=== PATIENT | female | born 2005 | race Caucasian/White ===

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

== ENCOUNTER → 2025-06-16 | Outpatient (CLI) | payer OTHER, SELFPAY ==
[2025-06-16 12:32] LABS: Hematocrit 37.5 % (37-47); Hemoglobin 12.9 g/dL (12.0-15.0); Immature Granulocytes Count 0.010 X10^3/uL (0.0-0.0); Mean Corp Hgb Conc 34.4 g/dL (32-36); Mean Corpuscular Volume 90.6 fL (81-99); Mean Platelet Vol. 9.4 fl (6.2-12.0); NRBC Flagged by Analyzer 0 % (0-5); Platelet Count 240 K/mm3 (150-450); RBC Distribution Width CV 11.6 % (11.6-14.6); RBC Distribution Width SD 38.6 fl (35.1-43.9); Red Blood Count 4.14 M/mm3 (4.2-5.4); White Blood Count 4.7 K/mm3 (4.4-11.0)
[2025-06-16 13:53] LABS: AST(SGOT) 15 U/L (<=31); Alanine Aminotransfer ALT/SGPT 14 U/L (<=34); Albumin, Serum 4.6 g/dL (3.5-5.0); Alkaline Phosphatase 57 U/L (35-104); Anion Gap 10 (5-15); BUN 13 mg/dL (4-19); BUN/Creat Ratio 17.9 RATIO (10-20); Calcium,Total 9.7 mg/dL (7.6-11.0); Carbon Dioxide 25.2 mmol/L (21.0-32.0); Chloride 104 mmol/L (98-108); Ferritin 37 ng/mL (22-378); Free T3 3.1 pg/mL (2.18-3.98); Globulin 2.8 g/dL (2.2-4.2); Glucose 104 mg/dL (70-99); Iron 76 ug/dL (50-170); Iron Binding Capacity,Total 302 ug/dL (250-450); Iron Binding Capacity,Unsat 226 ug/dL (228-428); Magnesium 2.2 mg/dL (1.5-2.2); Potassium 4.4 mmol/L (3.3-5.1)
== END | disposition home or self-care (01) ==
PROVIDERS: PCP Nurse Practitioner Family; Visit Provider Nurse Practitioner Family
DX: R00.2 Palpitations (principal)
CPT/HCPCS: 36415; 80053; 82728; 83540; 83550; 83735; 84439; 84443; 84481; 85025; 86376

== ENCOUNTER → 2025-06-20 | Outpatient (CLI) | payer OTHER, SELFPAY ==
--- OUTSIDE RECORDS SUMMARY | 2025-06-20 07:40 | XMS RPT_ITS | CCD ---
Author Organization [facility] Inform ion Partnership [facility] Care Team Providers Care Sock Lining Examiner Name Role Phone Unavailable Primary Care Provider Nhung Barton MD Primary Care Provider Unavailable Primary Care Provider Iban Dukes Primary Care Provider NHUNG Barton Primary Care Unavailable REFERRED, SELF Referring Unavailable OXANA WEST Attending Unavailable NHUNG ABRRON Primary Care Unavailable REFERRED, SELF Referring Unavailable OXANA WEST Attending Unavailable LENORA MCDANIELS Attending Unavailable NEEMA WATERS Attending Unavailable MAXIM CANTU Attending Unavailable Robina Boyd Attending Unavailable Robina Boyd Referring Unavailable Robina Boyd Primary Care Unavailable Robina Boyd Attending Unavailable Rboina Boyd Primary Care Unavailable Medications Current Medications Medication Drug Class(es) Dates Sig (Normalized) Sig (Original) [id number] 200 actuat albuterol 0.09 mg/actuat metered dose inhaler (1 source) beta2-Adrenergic Agonist Start: 05-06-2020 take 2 puff(s) by inhalation every four hours as needed for cough albuterol (VENTOLIN HFA) 108 (90 Base) MCG/ACT inhaler Inhale 2 Puffs into the lungs every 4 hours as needed for Wheezing or Cough 18 g 2 05/06/2020 Active amoxicillin 500 mg oral capsule (1 source) Penicillin-class Antibacterial Start: 03-17-2025 End: 03-27-2025 take 1 capsule by mouth twice daily amoxicillin (AMOXIL) 500 mg capsule Indications: Strep pharyngitis Take 1 capsule by mouth two times a day for 10 days. 20 capsule 03/17/2025 03/27/2025 Active amoxicillin 875 mg / clavulanate 125 mg oral tablet (1 source) Penicillin-class Antibacterial Start: 02-12-2025 End: 02-22-2025 take 1 tablet by mouth twice daily amoxicillin-clavul anate potassium (AUGMENTIN) 875-125 mg per tablet Indications: Acute non-recurrent streptococcal tonsillitis Take 1 tablet by mouth two times a day for 10 days. 20 tablet 02/12/2025 02/22/2025 Active azelastine hydrochloride 0.137 mg/actuat metered dose nasal spray (1 source) Histamine-1 Receptor Antagonist Start: 10-26-2020 azelastine (ASTELIN) 0.1 % nasal spray SPRAY ONCE IN EACH NOSTRIL 2 TIMES DAILY 90 [employer] 11 10/26/2020 Active 12 hr guaiFENesin 600 mg extended release oral tablet (1 source) guaiFENesin (MUCINEX) 600 MG SR tablet Take by mouth 0 Active levalbuterol 0.417 mg/ml inhalation solution (2 sources) beta2-Adrenergic Agonist Start: 11-28-2022 take 3 mL by inhalation every eight hours as needed for wheezing levalbuterol (XOPENEX) 1.25 MG/3ML nebulizer solution Inhale 3 mL (1.25 mg) into the lungs every 8 hours as needed for Wheezing 24 Each 0 11/28/2022 Active Start: 09-18-2008 levalbuterol ( XOPENEX) 1.25 MG/3ML nebulizer solution Inhale into the lungs as needed. 0 09/18/2008 Active loratadine 10 mg oral tablet (1 source) loratadine (CLAR ITIN) 10 MG tablet Take by mouth 0 Active predniSONE 20 mg oral tablet (1 source) Start: 02-13-20 25 End: 02-18-20 25 take 1 tablet by mouth twice daily predniSONE (DELTASONE) 20 mg tablet Indications: Acute non-recurrent streptococcal tonsillitis Take 1 tablet by mouth two times a day for 5 days. 10 tablet 02/12/2025 02/17/2025 Active pseudoephedrine hydrochloride 30 mg oral tablet (1 source) alpha-Adrenergi c Agonist pseudoephedrine (SUDAFED) 30 MG tablet Take by mouth every 6 hours 0 Active Spacer/Aero-Holding Chambers (AEROCHAMBER MV) MISC (1 source) Start: 05-20-20 16 take 2 puff(s) by inhalation every four hours as needed for cough Spacer/Aero-Holding Chambers (AEROCHAMBER MV) MISC Inhale 2 Puffs into the lungs every 4 hours as needed for Other (wheezing, cough) 1 Each 3 05/20/2016 Active Completed/Discontinued Medications Medication Drug Class(es) Dates Sig (Normalized) Sig (Original) dexamethasone 1 mg oral tablet (4 sources) Corticosteroid Start: 12-25-2023 End: 03-17-2025 dexAMETHasone (DECADRON) 1 mg tablet Indications: Elevated DHEA Take the tablet at around 11 pm and go for labs the next morning 1 tablet 12/25/2023 03/17/2025 Discontinued Problems Active Problems Problem Classification Problem Date Documented Date Episodic/Chronic Asthma (1 source) Asthma; Translations: [Unspecified asthma, uncomplicated] Onset: 03-28-2013 06-06-2016 Chronic Cardiac dysrhythmias (2 sources) Palpitations; Translations: [Palpitations] Onset: 06-17-2025 10-10-2023 Episodic Contraceptive and procreative management (1 source) Encounter for other contraceptive management; Translations: [Encounter for other contraceptive management] Onset: 05-23-2025 Episodic Malaise and fatigue (1 source) Fatigue; Translations: [Other fatigue] 10-10-2023 Episodic Menstrual disorders (4 sources) Irregular periods; Translations: [Irregular menstruation, unspecified] Onset: 05-23-2025 10-26-2023 Chronic Other endocrine disorders (1 source) Polycystic ovary syndrome; Translations: [Polycystic ovarian syndrome] 01-11-2024 Chronic Other endocrine disorders (1 source) Polycystic ovarian syndrome; Translations: [PCOS (polycystic ovarian syndrome)] Onset: 05-23-2025 Chronic Other female genital disorders (1 source) Abnormal uterine bleeding; Translations: [Other specified abnormal uterine and vaginal bleeding] 11-24-2023 Chronic Other screening for suspected conditions (not mental disorders or infectious disease) (4 sources) Endocrine finding; Translations: [Other specified abnormal findings of blood chemistry] 11-23-2023 Episodic Other upper respiratory disease (1 source) Allergic rhinitis; Translations: [Allergic rhinitis, unspecified] Onset: 03-30-2011 11-12-2015 Chronic Other upper respiratory infections (6 sources) Viral upper respiratory tract infection; Translations: [Acute upper respiratory infection, unspecified] Onset: 02-12-2025 Episodic Past or Other Problems Problem Classification Problem Date Documented Date Episodic/Chronic Headache; including migraine (1 source) Occipital headache; Translations: [Unilateral occipital headache] Onset: 05-06-2020 05-06-2020 Episodic Other connective tissue disease (1 source) Spasm; Translations: [Other muscle spasm] Onset: 01-30-2010 Resolved: 08-08-2013 08-08-2013 Episodic Residual codes; unclassified (1 source) Family history of ischemic heart disease and other diseases of the circulatory system; Translations: [Family history of other cardiovascular diseases] Onset: 03-28-2013 04-21-2013 Episodic Results Test Name Value Interpretation Reference Range Facility Thyroid Peroxidase ABon 06-04 THYR PEROX AB < 9 Normal 0-34 [facility] Comment on above: Result Comment: Perf ormed at: [facility] [address] [id number] Surgical Instrument Repair Specialist: Randall Rogers PhD, Phone: [phone] Performed By: #### L 506.0400, L3300.6900, L100.0100, L500.4050, L501.5200, L501.32664, L501.9520, L503.6030, L503.6550 #### [facility] [address] [place], [address] CBC W/Diff, Automatedon 06-04 Absolute Lymph 1.74 X10 3/uL Normal 0.83-4.51 [facility] Comment on above: Performed By: #### L 506.0400, L3300.6900, L100.0100, L500.4050, L501.5200, L501.57419, L501.9520, L503.6030, L503.6550 #### [facility] [address] [place], [address] Absolute Neut 2.7 X10 3/uL Normal 2.0-7.7 [facility] Comment on above: Performed By: #### L 506.0400, L3300.6900, L100.0100, L500.4050, L501.5200, L501.61953, L501.9520, L503.6030, L503.6550 #### [facility] [address] [place], [address] Basophils/100 WBC (Bld) 0.6 % Normal 0-1 [facility] Comment on above: Performed By: #### L 506.0400, L3300.6900, L100.0100, L500.4050, L501.5200, L501.17777, L501.9520, L503.6030, L503.6550 #### [facility] [address] [place], [address] Eosinophils/100 WBC (Bld) 0.4 % Normal 0-5 [facility] Comment on above: Performed By: #### L 506.0400, L3300.6900, L100.0100, L500.4050, L501.5200, L501.31831, L501.9520, L503.6030, L503.6550 #### [facility] [address] [place], [place], [id number] (912) Erythrocyte distribution width (RBC) [Ratio] 11.6 % Normal 11.6-14.6 [facility] Comment on above: Performed By: #### L 506.0400, L3300.6900, L100.0100, L500.4050, L501.5200, L501.44965, L501.9520, L503.6030, L503.6550 #### [facility] [address] [place], [address] Hematocrit (Bld) [Volume fraction] 37.5 % Normal 37-47 [facility] Comment on above: Performed By: #### L 506.0400, L3300.6900, L100.0100, L500.4050, L501.5200, L501.29052, L501.9520, L503.6030, L503.6550 #### [facility] [address] [place], [address] Hemoglobin (Bld) [Mass/Vol] 12.9 g/dL Normal 12.0-15.0 [facility] Comment on above: Performed By: #### L 506.0400, L3300.6900, L100.0100, L500.4050, L501.5200, L501.60668, L501.9520, L503.6030, L503.6550 #### [facility] [address] [place], [address] IG% 0.200 Normal 0.0-0.9 [facility] Comment on above: Result Comment: IG% - Immature Granulocytes (promyelocytes, myelocytes and metamyelocytes) > 1% indicates that a LEFT SHIFT is Present. Performed By: #### L 506.0400, L3300.6900, L100.0100, L500.4050, L501.5200, L501.96073, L501.9520, L503.6030, L503.6550 #### [facility] [address] [place], [address] Lymphocytes/100 WBC (Bld) 37.0 % Normal 19-41 [facility] Comment on above: Performed By: #### L 506.0400, L3300.6900, L100.0100, L500.4050, L501.5200, L501.07197, L501.9520, L503.6030, L503.6550 #### [facility] [address] [place], [address] MCH (RBC) [Entitic mass] 31.2 pg Normal 27.0-32.0 [facility] Comment on above: Performed By: #### L 506.0400, L3300.6900, L100.0100, L500.4050, L501.5200, L501.68270, L501.9520, L503.6030, L503.6550 #### [facility] [address] [place], [address] MCHC (RBC) [Mass/Vol] 34.4 g/dL Normal 32-36 [facility] Comment on above: Performed By: #### L 506.0400, L3300.6900, L100.0100, L500.4050, L501.5200, L501.02117, L501.9520, L503.6030, L503.6550 #### [facility] [address] [place], [address] MCV (RBC) [Entitic vol] 90.6 fL Normal 81-99 [facility] Comment on above: Performed By: #### L 506.0400, L3300.6900, L100.0100, L500.4050, L501.5200, L501.01452, L501.9520, L503.6030, L503.6550 #### [facility] [address] [place], [address] Monocytes/100 WBC (Bld) 4.7 % Normal 0-10 [facility] Comment on above: Performed By: #### L 506.0400, L3300.6900, L100.0100, L500.4050, L501.5200, L501.49511, L501.9520, L503.6030, L503.6550 #### [facility] [address] [place], [address] Neutrophils/100 WBC (Bld) 57.1 % Normal 47-70 [facility] Comment on above: Performed By: #### L 506.0400, L3300.6900, L100.0100, L500.4050, L501.5200, L501.61123, L501.9520, L503.6030, L503.6550 #### [facility] [address] [place], [address] Nucleated RBC (Bld) [#/Vol] 0 10*3/uL Normal 0-5 [facility] Comment on above: Performed By: #### L 506.0400, L3300.6900, L100.0100, L500.4050, L501.5200, L501.04454, L501.9520, L503.6030, L503.6550 #### [facility] [address] [place], [address] Platelet mean volume (Bld) [Entitic vol] 9.4 fL Normal 6.2-12.0 [facility] Comment on above: Performed By: #### L 506.0400, L3300.6900, L100.0100, L500.4050, L501.5200, L501.61770, L501.9520, L503.6030, L503.6550 #### [facility] [address] [place], [address] Platelets (Bld) [#/Vol] 240 10*3/uL Normal 150-450 [facility] Comment on above: Performed By: #### L 506.0400, L3300.6900, L100.0100, L500.4050, L501.5200, L501.54298, L501.9520, L503.6030, L503.6550 #### [facility] [address] [place], [address] RBC (Bld) [#/Vol] 4.14 10*6/uL Low 4.2-5.4 [facility] Comment on above: Performed By: #### L 506.0400, L3300.6900, L100.0100, L500.4050, L501.5200, L501.69850, L501.9520, L503.6030, L503.6550 #### [facility] [address] [place], [address] RDW SD 38.6 fl Normal 35.1-43.9 [facility] Comment on above: Performed By: #### L 506.0400, L3300.6900, L100.0100, L500.4050, L501.5200, L501.41396, L501.9520, L503.6030, L503.6550 #### [facility] [address] [place], [place], [id number] WBC (Bld) [#/Vol] 4.7 10*3/uL Normal 4.4-11.0 [facility] Comment on above: Performed By: #### L 506.0400, L3300.6900, L100.0100, L500.4050, L501.5200, L501.96870, L501.9520, L503.6030, L503.6550 #### [facility] [address] [place], [address] Comprehensive Metabolic Prof [facility] 06-16-2025 Albumin [Mass/Vol] 4.6 g/dL Normal 3.5-5.0 [facility] Comment on above: Performed By: #### L 506.0400, L3300.6900, L100.0100, L500.4050, L501.5200, L501.18095, L501.9520, L503.6030, L503.6550 #### [facility] [address] [place], [place], [id number] Albumin/Globulin [Mass ratio] 1.6 {ratio} Normal 0.9-2.4 [facility] Comment on above: Performed By: #### L 506.0400, L3300.6900, L100.0100, L500.4050, L501.5200, L501.15318, L501.9520, L503.6030, L503.6550 #### [facility] [address] [place], [place], [id number] ALK PHOS 57 U/L Normal 35-104 [facility] Comment on above: Performed By: #### L 506.0400, L3300.6900, L100.0100, L500.4050, L501.5200, L501.16322, L501.9520, L503.6030, L503.6550 #### [facility] [address] [place], [place], [id number] (515) ALT [Catalytic activity/Vol] 14 U/L Normal <=34 [facility] Comment on above: Performed By: #### L 506.0400, L3300.6900, L100.0100, L500.4050, L501.5200, L501.09386, L501.9520, L503.6030, L503.6550 #### [facility] [address] [place], [address] AST [Catalytic activity/Vol] 15 U/L Normal <=31 [facility] Comment on above: Performed By: #### L 506.0400, L3300.6900, L100.0100, L500.4050, L501.5200, L501.70132, L501.9520, L503.6030, L503.6550 #### [facility] [address] [place], [place], [id number] Bilirubin [Mass/Vol] 0.35 mg/dL Normal 0.00-1.30 [facility] Comment on above: Performed By: #### L 506.0400, L3300.6900, L100.0100, L500.4050, L501.5200, L501.72935, L501.9520, L503.6030, L503.6550 #### [facility] [address] [place], [place], [id number] BUN/CRE 17.9 RATIO Normal 10-20 [facility] Comment on above: Performed By: #### L 506.0400, L3300.6900, L100.0100, L500.4050, L501.5200, L501.95424, L501.9520, L503.6030, L503.6550 #### [facility] [address] [place], [address] Calcium [Mass/Vol] 9.7 mg/dL Normal 7.6-11.0 [facility] Comment on above: Performed By: #### L 506.0400, L3300.6900, L100.0100, L500.4050, L501.5200, L501.16707, L501.9520, L503.6030, L503.6550 #### [facility] [address] [place], [address] Chloride [Moles/Vol] 104 mmol/L Normal 98-108 [facility] Comment on above: Performed By: #### L 506.0400, L3300.6900, L100.0100, L500.4050, L501.5200, L501.78534, L501.9520, L503.6030, L503.6550 #### [facility] [address] [place], [address] CO2 [Moles/Vol] 25.2 mmol/L Normal 21.0-32.0 [facility] Comment on above: Performed By: #### L 506.0400, L3300.6900, L100.0100, L500.4050, L501.5200, L501.55342, L501.9520, L503.6030, L503.6550 #### [facility] [address] [place], [address] Creatinine [Mass/Vol] 0.71 mg/dL Normal 0.70-1.20 [facility] Comment on above: Performed By: #### L 506.0400, L3300.6900, L100.0100, L500.4050, L501.5200, L501.50056, L501.9520, L503.6030, L503.6550 #### [facility] [address] [place], [address] GAP 10 Normal 5-15 [facility] Comment on above: Performed By: #### L 506.0400, L3300.6900, L100.0100, L500.4050, L501.5200, L501.78552, L501.9520, L503.6030, L503.6550 #### [facility] [address] [place], [address] GFR/1.73 sq M.predicted among non-blacks MDRD (S/P/Bld) [Vol rate/Area] 125 mL/min/{1.73_m2} Normal >60 [facility] Comment on above: Result Comment: mL/m in/1.73m2 CKD-EPI Creatinine Equation (2020) Performed By: #### L 506.0400, L3300.6900, L100.0100, L500.4050, L501.5200, L501.03727, L501.9520, L503.6030, L503.6550 #### [facility] [address] [place], [address] Globulin (S) [Mass/Vol] 2.8 g/dL Normal 2.2-4.2 [facility] Comment on above: Performed By: #### L 506.0400, L3300.6900, L100.0100, L500.4050, L501.5200, L501.60172, L501.9520, L503.6030, L503.6550 #### [facility] [address] [place], [address] Glucose [Mass/Vol] 104 mg/dL High 70-99 [facility] Comment on above: Performed By: #### L 506.0400, L3300.6900, L100.0100, L500.4050, L501.5200, L501.40013, L501.9520, L503.6030, L503.6550 #### [facility] [address] [place], [address] Potassium [Moles/Vol] 4.4 mmol/L Normal 3.3-5.1 [facility] Comment on above: Performed By: #### L 506.0400, L3300.6900, L100.0100, L500.4050, L501.5200, L501.60550, L501.9520, L503.6030, L503.6550 #### [facility] [address] [place], [address] Sodium [Moles/Vol] 140 mmol/L Normal 133-145 [facility] Comment on above: Performed By: #### L 506.0400, L3300.6900, L100.0100, L500.4050, L501.5200, L501.32942, L501.9520, L503.6030, L503.6550 #### [facility] [address] [place], [address] T PROT 7.3 g/dL Normal 5.9-8.4 [facility] Comment on above: Performed By: #### L 506.0400, L3300.6900, L100.0100, L500.4050, L501.5200, L501.09571, L501.9520, L503.6030, L503.6550 #### [facility] [address] [place], [address] Urea nitrogen [Mass/Vol] 13 mg/dL Normal 4-19 [facility] Comment on above: Performed By: #### L 506.0400, L3300.6900, L100.0100, L500.4050, L501.5200, L501.58552, L501.9520, L503.6030, L503.6550 #### [facility] [address] [place], [address] Ferritinon 06-16-2025 Ferritin [Mass/Vol] 37 ng/mL Normal 22-378 [facility] Comment on above: Performed By: #### L 506.0400, L3300.6900, L100.0100, L500.4050, L501.5200, L501.13643, L501.9520, L503.6030, L503.6550 #### [facility] [address] [place], [place], [id number] Free T3on 06-16-2025 Free T3 [Mass/Vol] 3.1 pg/mL Normal 2.18-3.98 [facility] Comment on above: Performed By: #### L 506.0400, L3300.6900, L100.0100, L500.4050, L501.5200, L501.80992, L501.9520, L503.6030, L503.6550 #### [facility] [address] [place], [address] Iron+Iron Binding Capacityon 06-16-2025 Iron [Mass/Vol] 76 ug/dL Normal 50-170 [facility] Comment on above: Performed By: #### L 506.0400, L3300.6900, L100.0100, L500.4050, L501.5200, L501.55092, L501.9520, L503.6030, L503.6550 #### [facility] [address] [place], [address] IRON SATURATION 25.2 Normal 13-59 [facility] Comment on above: Performed By: #### L 506.0400, L3300.6900, L100.0100, L500.4050, L501.5200, L501.83349, L501.9520, L503.6030, L503.6550 #### [facility] [address] [place], [address] TIBC 302 ug/dL Normal 250-450 [facility] Comment on above: Performed By: #### L 506.0400, L3300.6900, L100.0100, L500.4050, L501.5200, L501.39487, L501.9520, L503.6030, L503.6550 #### [facility] [address] [place], [address] UIBC 226 ug/dL Low 228-428 [facility] Comment on above: Performed By: #### L 506.0400, L3300.6900, L100.0100, L500.4050, L501.5200, L501.58150, L501.9520, L503.6030, L503.6550 #### [facility] [address] [place], [address] Magnesiumon 06-16-2025 Magnesium [Mass/Vol] 2.2 mg/dL Normal 1.5-2.2 [facility] Comment on above: Performed By: #### L 506.0400, L3300.6900, L100.0100, L500.4050, L501.5200, L501.98465, L501.9520, L503.6030, L503.6550 #### [facility] [address] [place], [address] T4 Free Directon 06-16-2025 T4 FREE DIRECT 1.00 ng/dL Normal 0.76-1.46 [facility] Comment on above: Performed By: #### L 506.0400, L3300.6900, L100.0100, L500.4050, L501.5200, L501.64637, L501.9520, L503.6030, L503.6550 #### [facility] [address] [place], [address] Thyroid Stim Hormone (TSH)on 06-16-2025 TSH 1.320 uIU/mL Normal 0.300-4.200 [facility] Comment on above: Performed By: #### L 506.0400, L3300.6900, L100.0100, L500.4050, L501.5200, L501.95404, L501.9520, L503.6030, L503.6550 #### [facility] [place], [address] CNOVon 05-23-2025 CNOV Office Visit (OBGYWM) CATALINA GERBER ([id number]) 5 F Date Time Provider Department 05/23/25 8:00 AM LENORA MCDANIELS OBGYWM During your visit today, we recorded the following information about you: Blood pressure Weight Last Period 110/62 74.5 kg 04/26/25 Lenora Mcdaniels APRN.FLOCCULATOR OPERATOR 05/23/2025 9:03 AM Signed Obstetrics and Gynecology [place] REMARKETING REP Visit Subjective Recording using ambient Rezzcard software for draft documentation of the visit was discussed with the patient/authorized insurance verification representative; all questions welcomed and answered. Patient/authorized insurance verification representative agreed to proceed CHIEF COMPLAINT: The patient is a 20-year-old female with PCOS, presenting for evaluation of abnormal uterine bleeding and management of irregular menstrual cycles. HPI: Menstrual History - Reports irregular menstrual cycles, with periods occurring once a month for a few months at the beginning of the year, followed by an absence of periods in February and March. - Last menstrual period was at the end of April, lasting approximately four days with no significant heavy bleeding. - Experiences cramping and feeling "sick" a week before the onset of menstruation. - Denies significant cramping during menstruation. PCOS - Suspected diagnosis of PCOS made approximately a year ago, but no treatment was initiated at that time. - Reports excess vaginal discharge, but denies any unusual odor or color changes. 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 levalbuterol (XOPENEX) 1.25 mg/3 mL nebulizer solution Use 1.25 mg via nebulizer every 4 hours as needed. Ethinyl Estradiol-Norelgestr om (XULANE) 150-35 mcg/24 hr patch Apply 1 patch as directed one time a week. No current facility-administere d medications for this visit. ALLERGIES No Known Allergies REVIEW OF SYSTEMS: Constitutional: (+) malaise Genitourinary: (+) irregular menses, (+) pelvic pain, (+) increased vaginal discharge, (-) heavy menstrual bleeding, (-) vaginal pruritus, (-) malodorous vaginal discharge Objective SENSITIVE EXAM: Sensitive exam not performed. PHYSICAL EXAM: BP 110/62 Wt 164 lb 3.2 oz (74.5kg) LMP 04/26/2025 GENERAL: Pleasant, well-appearing, in no apparent distress PULMONARY: normal inspiratory effort NEURO: alert and oriented x3 EXTREMITIES: normal Assessment AND Plan ASSESSMENT AND PLAN: 1. PCOS (polycystic ovarian syndrome) (E28.2) 2. Irregular menstrual cycle (N92.6) 3. Encounter for other contraceptive management (Z30.8) - History of irregular menses, likely secondary to PCOS; previously discussed but not treated with hormonal therapy. - Start contraceptive patch to regulate menstrual cycles and manage PCOS symptoms. - Discussed alternative of oral contraceptive pills, including differences in convenience and dosing flexibility; patient prefers patch. - Educated on proper patch application, expected side effects, and the possibility of breakthrough bleeding or spotting during the first month. - Provided written information on side effects and when to contact the office for heavy bleeding, severe cramping, or nausea. - Follow-up in 3 months to assess symptom improvement and menstrual regularity. Lenora Mcdaniels APRN.CNP Medical Decision Making: Problems: Low: Acute, uncomplicated illness or injury Risk: Moderate: Drug management Medical Decision Making Level: 3 - Low [1] Social History Tobacco Use Smoking status: Never Smokeless tobacco: Never Vaping Use Vaping status: Never Used Substance Use Topics Alcohol use: Never Drug use: Never Lenora Mcdaniels APRN.CNP 05/23/2025 8:26 AM Signed Oral Contraceptives: The Combined (Estrogen + Progestin) Pill Beginning the Combined Pill In most packs, the first 21 pills have active ingredients and the last 7 are non-medicine containing pills (placebo) or they may contain iron. There will be bleeding during the week you are taking the placebo pills. There are also packs that contain 24 active medication pills and only 4 placebo pills. These are form (more content not included)... [facility] Progress Noteon 04-29-2025 [employer] [place] Authentication Interface Message Text Patient ID: Catalina Gerber is a 20 y.o. female. Her chief complaint(s) include: Abdominal Pain (Indigestion and belly ache. Cramping and low back pain ) Assessment 1. Lower abdominal pain 2. Symptoms involving urinary system 3. Encounter for test, result unknown 4. Gastroesophageal reflux disease, unspecified whether esophagitis present Plan Catalina was seen today for abdominal pain. Diagnoses and associated orders for this visit: Lower abdominal pain Symptoms involving urinary system - POCT urinalysis dipstick- negative Encounter for test, result unknown - POCT urine HCG-negative Gastroesophageal reflux disease, unspecified whether esophagitis present - omeprazole (PRILOSEC) 20 MG capsule; Take 1 Capsule (20 mg) by mouth daily Patient with hx of PCOS and acid reflux here for decreased appetite, lower abdominal pain, and lower back pain. UA and urine HCG negative. Low concern for UTI/pyelo, appendicitis, and STI. Other differentials for her abdominal suprapelvic pain include ovarian cyst with her PCOS, endometriosis, menstrual cramps, constipation/bloatin g/gas. Low back pain may be MSK pain but continue to monitor. In regards to pain, can continue NSAIDs (I.e. Aleve twice daily), heating pad. Advised to discuss with OBGYN. Discussed reflux and recommended Prilosec OTC. Sent prescription in just in case. I saw patient [id number] with Oxana West MD in the PM. Salvatore Gonzalez, 04/29/2025 4:14 PM I personally performed yoder portions of the history and physical examination of this patient and discussed the management plan with the resident. I reviewed the resident's note. The findings and the plan of care are set forth above. Oxana Hatfield MD 4:26 PM 04/29/2025 Subjective HPI Comments: 10 days ago, started a period. - lasted 4 days, not heavy Since her period started, has been nauseas, decreased appetite No emesis, nausea improved since period stopped but has decreased appetite Yesterday noted lower belly cramping and today low back pain, achy/dull Today, noted white, sticky, vaginal discharge Worsening belly pain when she has to pee Feels more bloated and has gas pain in the AM Denies weird vaginal discharge smells, spotting, dysuria, hematuria, constipation Stooling once a day, initially diarrhea but has improved No fevers, URI, headache, rash, fatigue. No known sick contacts Has tried ibuprofen yesterday with minimal relief in abdominal pain Has hx of PCOS, acid reflux (takes tums after meals at least once to every other day) Reflux worse around periods Usually irregular cycles but has been regular for the last year Never been on control Denies any or hx of sexual activity Has OBGYN appointment early may She is unaccompanied. Abdominal Pain Primary Care Review of Systems Objective Vital Signs 04/29/25 1504 Temp: 36.6 C (97.9 F) TempSrc: Temporal Weight: 73.6 kg Height: 170 cm Body mass index is 25.47 kg/m . Physical Exam Nursing note reviewed. Constitutional: She appears well. No distress. HENT: Head: Atraumatic. Ears: Right Ear: Tympanic membrane and external ear normal. Left Ear: Tympanic membrane and external ear normal. Nose: Nose normal. Mouth/Throat: Mucous membranes are moist. Dentition is normal. Oropharynx is clear. Eyes: EOM are normal. Pupils are equal, round, and reactive to light. Neck: Neck supple. Thyroid normal. Cardiovascular: Normal rate, regular rhythm, S1 normal and S2 normal. Pulses are palpable. Heart murmur not heard. Pulmonary/Chest: Breath sounds normal. There is normal air entry. No respiratory distress. Exhibits no deformity. Abdominal: Soft. Bowel sounds are normal. She exhibits no distension and no mass. There is no hepatosplenomegaly. There is abdominal tenderness (lower abdomen/suprapubic area R>L). Jumps up and down without pain Musculoskeletal: Cervical back: Normal range of motion and neck supple. General: No tenderness. Normal range of motion. Comments: No back tenderness on palpation No spinal tenderness Neurological: She is alert. Skin: Capillary refill takes less than 3 seconds. Skin is warm. Skin is not pale. Findings: No rash. Vitals reviewed: Temperature 36.6 C (97.9 F), temperature source Temporal, height 170 cm, weight 73.6 kg. Last Result POCT urine HCG Collection Time: 04/29/25 3:14 PM Result Value Ref Range hCG Urine POCT Negative Negative Control Line *Present Clear Background *Present Lot # [id number] POCT urinalysis dipstick Collection Time: 04/29/25 3:13 PM Result Value Ref Range POCT, Leukocytes, Urine Negative Negative POCT Nitrite, Urine Negative Negative POCT Protein, Urine Negative Negative - Trace mg/dl POCT Urine,pH 7.0 5.0 - 8.0 POCT Blood, Urine Negative Negative POCT Urine Specific [place] 1.005 1.005 - 1.030 POCT Ketones, Urine Negative Negative mg/dl POCT Glucose, Urine Negati (more content not included)... Normal [facility] CNOVon 03-17-2025 CNOV Office Visit ([place]) CATALINA GERBER ([id number]) 5 F Date Time Provider Department 03/17/25 5:45 PM SLABNEEMA ARCE During your visit today, we recorded the following information about you: Temperature Pulse Respiration Blood pressure 97.6 degrees 95/minute 16/minute 131/69 Weight 75.9 kg Neema Waters PA-C 03/17/2025 6:02 PM Signed PATIENT NAME: Catalina Gerber DATE OF : 2005 TODAYS' DATE: 03/17/2025 Surgical mask and gloves worn for all in-person care. SUBJECTIVE: Patient presents with: Sore Throat: Sore throat last couple days. Head ache. Hurt to swallow. HPI per the patient. History of Present Illness: This is a 20 year old with a PMHx of asthma that is here today for acute onset sore throat and SMITH for a couple of days. No sinus, cough, n/v, SMITH, or rash. No other URI or sick symptoms. Denies fever, chills, sweats, or fatigue. Patient denies wheezing, shortness of breath, increased WOB, or chest pain. Chart review: PMHx of asthma Pain on scale of 0-10 with 0 being no pain and 10 being greatest pain: - Self-treatment:. Ibuprofen Barriers to learning: none. Reviewed meds, OTCs, herbals or supplements. Reviewed allergies, medications, social history, and past medical history. Allergies: Allergies: No Known Allergies ALLERGIES Patient has no known allergies. Past Medical History: PAST MEDICAL HISTORY Diagnosis Date Asthma Past Surgical History: PAST SURGICAL HISTORY Procedure Laterality Date NONE Family History: FAMILY HISTORY Problem Relation Age of Onset Thyroid Nodule Sister other (pcos) Sister other (pcos) Sister Hypothyroidism Maternal Aunt Thyroid Paternal Aunt Thyroid Paternal Aunt Thyroid Cancer Paternal cousin Thyroid Cancer Paternal cousin Tobacco History: Tobacco Use: Never Medications: Current Outpatient Medications Medication Sig Dispense Refill dexAMETHasone (DECADRON) 1 mg tablet Take the tablet at around 11 pm and go for labs the next morning (Patient not taking: Reported on 01/09/2024) 1 tablet 0 No current facility-administere d medications for this visit. Medications and allergies reviewed by this provider. Social history Social History Tobacco Use Smoking status: Never Smokeless tobacco: Never Vaping Use Vaping status: Never Used Substance Use Topics Alcohol use: Never Drug use: Never REVIEW OF SYSTEMS Review of Systems Constitutional: Negative. HENT: Positive for sore throat. Eyes: Negative. Respiratory: Negative. Cardiovascular: Negative. Gastrointestinal: Negative. Endocrine: Negative. Genitourinary: Negative. Musculoskeletal: Negative. Allergic/Immunologic : Negative. Neurological: Positive for headaches. Hematological: Negative. Psychiatric/Behavior al: Negative. All other systems reviewed and are negative. Vitals: BP 131/69 (BP Site: Right Arm, BP Position: Sitting, BP Cuff Size: Regular Adult) Pulse 95 Temp 36.4 ?C (97.6 ?F) (Right Tympanic) Resp 16 Wt 75.9 kg (167 lb 5.3 oz) LMP 09/13/2023 (Exact Date) SpO2 100% Physical Exam: Physical Exam Vitals reviewed. Constitutional: General: She is not in acute distress. Appearance: Normal appearance. She is well-developed and normal weight. She is not ill-appearing, toxic-appearing or diaphoretic. HENT: Head: Normocephalic and atraumatic. No right periorbital erythema or left periorbital erythema. Salivary Glands: Right salivary gland is not diffusely enlarged or tender. Left salivary gland is not diffusely enlarged or tender. Right Ear: Tympanic membrane, ear canal and external ear normal. Left Ear: Tympanic membrane, ear canal and external ear normal. Nose: Nose normal. No congestion or rhinorrhea. Right Sinus: No maxillary sinus tenderness or frontal sinus tenderness. Left Sinus: No maxillary sinus tenderness or frontal sinus tenderness. Mouth/Throat: Lips: [place]. No lesions. Mouth: Mucous membranes are moist. No oral lesions. Dentition: No gum lesions. Tongue: No lesions. Tongue does not deviate from midline. Palate: No mass and lesions. Pharynx: Oropharynx is clear. Uvula midline. Posterior oropharyngeal erythema present. No pharyngeal swelling, oropharyngeal exudate, uvula swelling or postnasal drip. Tonsils: No tonsillar exudate or tonsillar abscesses. 1+ on the right. 1+ on the left. Eyes: General: Lids are normal. No scleral icterus. Right eye: No discharge. Left eye: No discharge. Extraocular Movements: Extraocular movements intact. Conjunctiva/sclera: Conjunctivae normal. Pupils: Pupils are equal, round, and reactive to light. Pupils are equal. Cardiovascular: Rate and Rhythm: Normal rate and regular rhythm. Heart sounds: Normal heart sounds. Pulmonary: Effort: Pulmonary effort is normal. Breath sounds: Normal breath sounds and air entry. Muscul (more content not included)... [facility] STREP A MOLECULAR (POC)on Interpretation and review of laboratory results Abnormal [facility] Procedural Control Valid [facility] Strep A (POCT) Positive Abnormal Negative [facility] COMPLETE BLOOD COUNT WITH DI FFERENTIALon 02-25-2025 Basophil \\P\\ 0.03 10E3/???L Invalid Interpretation Code 0.02-0.06 [facility] Comment on above: Order Comment: Relea se to patient->Automatic Basophils/100 WBC (Bld) 0.5 % Invalid Interpretation Code 0.3-0.9 [facility] Comment on above: Order Comment: Relea se to patient->Automatic Eosinophil \\P\\ 0.03 10E3/???L Low 0.04-0.27 [facility] Comment on above: Order Comment: Relea se to patient->Automatic Eosinophils/100 WBC (Bld) 0.5 % Low 0.6-3.8 [facility] Comment on above: Order Comment: Relea se to patient->Automatic Erythrocyte distribution width (RBC) [Ratio] 11.7 % Low 11.9-14.8 [facility] Comment on above: Order Comment: Relea se to patient->Automatic Hematocrit (Bld) [Volume fraction] 37.8 % Invalid Interpretation Code 35.5-44.6 [facility] Comment on above: Order Comment: Relea se to patient->Automatic Hemoglobin (Bld) [Mass/Vol] 13.5 g/dL Invalid Interpretation Code 11.4-14.8 [facility] Comment on above: Order Comment: Relea se to patient->Automatic Immature granulocytes/100 WBC (Bld) 0.2 % Invalid Interpretation Code 0.2-0.5 [facility] Comment on above: Order Comment: Relea se to patient->Automatic Result Comment: Hilda ture Granulocyte Percent includes promyelocytes, myelocytes,and metamyelocytes. IG% > 1.0 indicates a left shift is present. With automated differentials, bands are included in the neutrophil count and not in the Immature Granulocyte Percent. Lymphocyte \\P\\ 1.85 10E3/???L Invalid Interpretation Code 1.51-2.99 [facility] Comment on above: Order Comment: Relea se to patient->Automatic Lymphocytes/100 WBC (Bld) 33.2 % Invalid Interpretation Code 21.8-42.1 [facility] Comment on above: Order Comment: Relea se to patient->Automatic MCH (RBC) [Entitic mass] 31.8 pg High 25.7-31.2 [facility] Comment on above: Order Comment: Relea se to patient->Automatic MCHC 35.7 % High 31.3-34.0 [facility] Comment on above: Order Comment: Relea se to patient->Automatic MCV (RBC) [Entitic vol] 89.2 fL Invalid Interpretation Code 80.0-100.0 [facility] Comment on above: Order Comment: Relea se to patient->Automatic Monocyte \\P\\ 0.26 10E3/???L Low 0.36-0.77 [facility] Comment on above: Order Comment: Relea se to patient->Automatic Monocytes/100 WBC (Bld) 4.7 % Low 5.6-10.2 [facility] Comment on above: Order Comment: Relea se to patient->Automatic Neutrophil \\P\\ 3.39 10E3/???L Invalid Interpretation Code 2.43-6.42 [facility] Comment on above: Order Comment: Relea se to patient->Automatic Neutrophils/100 WBC (Bld) 60.9 % Invalid Interpretation Code 46.0-68.6 [facility] Comment on above: Order Comment: Relea se to patient->Automatic Nucleated RBC/100 WBC (Bld) [Ratio] 0.0 % Invalid Interpretation Code 0.0-0.0 [facility] Comment on above: Order Comment: Relea se to patient->Automatic Platelet mean volume (Bld) [Entitic vol] 9.5 fL Low 9.6-11.9 [facility] Comment on above: Order Comment: Relea se to patient->Automatic Platelets 230 10E3/???L Invalid Interpretation Code 150-400 [facility] Comment on above: Order Comment: Relea se to patient->Automatic RBC 4.24 10E6/???L Invalid Interpretation Code 4.03-4.91 [facility] Comment on above: Order Comment: Relea se to patient->Automatic WBC 5.6 10E3/???L Invalid Interpretation Code 4.9-10.0 [facility] Comment on above: Order Comment: Relea se to patient->Automatic COMPREHENSIVE METABOLIC PANE [place] 02-25-2025 Albumin [Mass/Vol] 4.5 g/dL Invalid Interpretation Code 3.5-5.0 [facility] Comment on above: Order Comment: Relea se to patient->Automatic Result Comment: Veri fied By: [id number] ALP [Catalytic activity/Vol] 55 U/L Invalid Interpretation Code 35-104 [facility] Comment on above: Order Comment: Relea se to patient->Automatic Result Comment: Veri fied By: [id number] ALT [Catalytic activity/Vol] 22 U/L Invalid Interpretation Code <=34 [facility] Comment on above: Order Comment: Relea se to patient->Automatic Result Comment: Veri fied By: [id number] AST [Catalytic activity/Vol] 26 U/L Invalid Interpretation Code <=31 [facility] Comment on above: Order Comment: Relea se to patient->Automatic Result Comment: Veri fied By: [id number] BILI,TOTAL 0.7 mg/dL Invalid Interpretation Code <=1.0 [facility] Comment on above: Order Comment: Relea se to patient->Automatic Result Comment: Veri fied By: [id number] Calcium [Mass/Vol] 9.7 mg/dL Invalid Interpretation Code 7.6-11.0 [facility] Comment on above: Order Comment: Relea se to patient->Automatic Result Comment: Veri fied By: [id number] Chloride [Moles/Vol] 103 mmol/L Invalid Interpretation Code 96-108 [facility] Comment on above: Order Comment: Relea se to patient->Automatic Result Comment: Veri fied By: [id number] CO2 [Moles/Vol] 24.7 mmol/L Invalid Interpretation Code 22.0-29.0 [facility] Comment on above: Order Comment: Relea se to patient->Automatic Result Comment: Veri fied By: [id number] Creatinine [Mass/Vol] 0.82 mg/dL Invalid Interpretation Code 0.50-1.00 [facility] Comment on above: Order Comment: Relea se to patient->Automatic Result Comment: Veri fied By: [id number] GFR/1.73 sq M.predicted among non-blacks MDRD (S/P/Bld) [Vol rate/Area] mL/min/{1.73_m2} Invalid Interpretation Code >=60 [facility] Comment on above: Order Comment: Relea se to patient->Automatic Glucose [Mass/Vol] 106 mg/dL High 70-99 [facility] Comment on above: Order Comment: Relea se to patient->Automatic Result Comment: Claire guerra for Diagnosis of Diabetes: Fasting Specimen (no caloric intake for at least 8 hours): <100 mg/dL Normal 100-125 mg/dL Increased risk for Diabetes >125 mg/dL Diagnostic for Diabetes Random Glucose (any time of day without regard to last meal): > or = 200 mg/dL plus Classic Symptoms of Diabetes Verified By: [id number] Potassium [Moles/Vol] 4.2 mmol/L Invalid Interpretation Code 3.3-5.1 [facility] Comment on above: Order Comment: Relea se to patient->Automatic Result Comment: Veri fied By: [id number] Protein [Mass/Vol] 7.2 g/dL Invalid Interpretation Code 5.9-8.4 [facility] Comment on above: Order Comment: Relea se to patient->Automatic Result Comment: Veri fied By: [id number] Sodium [Moles/Vol] 138 mmol/L Invalid Interpretation Code 133-145 [facility] Comment on above: Order Comment: Relea se to patient->Automatic Result Comment: Veri fied By: [id number] Urea nitrogen [Mass/Vol] 13 mg/dL Invalid Interpretation Code 4-19 [facility] Comment on above: Order Comment: Relea se to patient->Automatic Result Comment: Veri fied By: [id number] ALVARO-MART VIRUS (EBV) ANT IBODY PROFILE, SERUMon 02-25-2025 ALVARO-MART VIRUS (EBV) ANTIBODY PROFILE, SERUM EBV Antibody, IgM Negative EBV Nuclear Antigen IgG Antibody Negative EBV Antibody, IgG (VCA) Positive Abnormal Negative [facility] Comment on above: Order Comment: Indet erminate result. This result pattern is not diagnostic. Consult with Infectious Disease specialist for further diagnostic testing, if clinically indicated. Release to patient->Automatic Progress Noteon 02-25-2025 [employer] [place] Authentication Interface Message Text Patient ID: Catalina Gerber is a 19 y.o. female. Her chief complaint(s) include: Chest Pain (Only left side, back pain and left arm, heart racing) Assessment 1. Generalized weakness 2. Fatigue, unspecified type 3. Chest pain, unspecified type 4. Mild intermittent asthma without complication Plan Catalina was seen today for chest pain. Diagnoses and associated orders for this visit: Generalized weakness - Alvaro-Mart virus (EBV) Antibody Profile (Clinic Collect) - Complete Blood Count with Differential (Clinic Collect) - Comprehensive metabolic panel (Clinic Collect) - Venipuncture Fatigue, unspecified type - Alvaro-Mart virus (EBV) Antibody Profile (Clinic Collect) - Complete Blood Count with Differential (Clinic Collect) - Comprehensive metabolic panel (Clinic Collect) - Venipuncture Chest pain, unspecified type - Alvaro-Mart virus (EBV) Antibody Profile (Clinic Collect) - Complete Blood Count with Differential (Clinic Collect) - Comprehensive metabolic panel (Clinic Collect) - Venipuncture Mild intermittent asthma without complication - albuterol (VENTOLIN HFA) 108 (90 Base) MCG/ACT inhaler; Inhale 2 Puffs into the lungs every 4 hours as needed for Wheezing or Cough - levalbuterol (XOPENEX) 1.25 MG/3ML nebulizer solution; Inhale 3 mL (1.25 mg) into the lungs every 8 hours as needed for Wheezing Catalina Gerber is a 19 y.o. female with hx of PVCs, PCOS, mild intermittent asthma, and recent strep infection presenting with 4 days of generalized weakness, fatigue, chest pain, and new onset back pain. No concerns for recurrent strep or other sick symptoms. With acute length of symptoms and symptomatology, less likely thyroid issues, rheumatologic, hematologic, or Vitamin deficiency. Other differentials discussed include possibility of mononucleosis infection with hx of large swollen tonsils and lymph nodes, though she could've had a superimposed mono infection in addition to her strep infection; could also have component of costochondritis, anxiety, or could also be her PVCs or other heart arrhythmia but no syncope or other red flag signs at this time. Currently with regular HR and rhythm at this time. Will obtain basic labs including CBC and CMP and check for mono titers. Will hold off EKG and other lab testing at this time due to low concern. Advised to monitor symptoms and to call/message if having concerns or worsening symptoms. Refilled home albuterol and Xopenex. I saw patient [id number] with Oxana West MD in the AM. Salvatore Gonzalez, 02/25/2025 1:11 PM I personally performed yoder portions of the history and physical examination of this patient and discussed the management plan with the resident. I reviewed the resident's note. The findings and the plan of care are set forth above. 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 CP - pressure, heaviness, constant + comes and goes, worse with deep breathing, heart racing (random, has shakiness with the heart racing) Denies palpitations, left arm weakness, numbness, lightheadedness, dizziness Denies anxiety or new stressors L upper back pain started yest - aching, no injuries, constant, movement doesn't make it worse + leg pain 4 days ago, achy, worsening, more weak and generalized - fevers, body aches, chills, SMITH, URI, SOB, abd sxs, joint pain, rash + diarrhea for a couple days but has improved. Ibuprofen not helping Denies constipation, hair loss, thinning of hair/nails, cold/hot intolerance Sleeping fine, doesn't wake up to the leg pain or CP No sick contacts No changes in diet, sleep, or lifestyle in general. But lost 5 lbs in last 2 weeks Has PCOS dx in 2023 but never been on meds In the last 6 months, had more regular periods, minimal cramping and normal bleeding Hx of reflux but has improved with taking the steroids No known exposure to mono Has history of palpitations, sees Cardiology. Had Holter monitor a year ago and found to have PVCs but rarely occur and no treatment necessary. Needs refills for albuterol and xopenex She is accompanied by her mother. Primary Care Review of Systems Objective Vital Signs 02/25/25 1108 02/25/25 1115 BP: (!) 148/70 (!) 142/74 Pulse: 88 Resp: 15 Temp: 36.3 C (97.4 F) TempSrc: Temporal Weight: 73.9 kg Height: 169.5 cm Body mass index is 25.72 kg/m . Physical Exam Nursing note reviewed. Constitutional: She appears well. No distress. HENT: Head: Atraumatic. Ears: Right Ear: Tympanic membrane and external ear normal. Left Ear: Tympanic membrane and external ear normal. Nose: Nose normal. Mouth/Throat: Mucous membranes are moist. Dentition is normal. No pharynx erythema. (more content not included)... [facility] Office Visit (CAMILO) CATALINA GERBER ([id number]) 5 F Date Time Provider Department 02/12/25 10:00 AM MAXIM CANTU During your visit today, we recorded the following information about you: Temperature Pulse Respiration Blood pressure 99.3 degrees 128/minute 16/minute 132/76 Weight 76.2 kg Maxim Cantu PA-C 02/12/2025 10:33 AM Signed This note was created using [place] (RTP)riter. Subjective Catalina Jacksonpat is a 19 year old female. Patient is a 19-year-old female who complains of sore throat that she has been experiencing for the past 2 days. Patient reports that when she woke this morning she felt as if her cervical lymph nodes were swollen. Patient reports no congestion, sinus pressure, ear pain, cough or other illness symptoms. Patient denies fever, chills or myalgia. Patient denies dysphagia and states she is tolerating food and fluids although it is painful to do so. Patient reports that both her father and her brother did develop group A strep tonsillitis approximately 2 weeks ago. Sore Throat Review of Systems HENT: Positive for sore throat. Hematological: Positive for adenopathy. All other systems reviewed and are negative. Objective BP 132/76 Pulse (!) 128 Temp 37.4 ?C (99.3 ?F) Resp 16 Wt 76.2 kg (167 lb 15.9 oz) LMP 09/13/2023 (Exact Date) SpO2 100% Physical Exam Vitals and nursing note reviewed. Constitutional: Appearance: Normal appearance. She is normal weight. HENT: Head: Normocephalic and atraumatic. Right Ear: External ear normal. Left Ear: External ear normal. Nose: Nose normal. Mouth/Throat: Mouth: Mucous membranes are moist. Pharynx: Oropharyngeal exudate and posterior oropharyngeal erythema present. Eyes: Extraocular Movements: Extraocular movements intact. Conjunctiva/sclera: Conjunctivae normal. Pupils: Pupils are equal, round, and reactive to light. Cardiovascular: Rate and Rhythm: Normal rate and regular rhythm. Pulses: Normal pulses. Heart sounds: Normal heart sounds. Pulmonary: Effort: Pulmonary effort is normal. Breath sounds: Normal breath sounds. Musculoskeletal: Cervical back: Normal range of motion and neck supple. Lymphadenopathy: Cervical: Cervical adenopathy present. Skin: General: Skin is warm and dry. Capillary Refill: Capillary refill takes less than 2 seconds. Neurological: General: No focal deficit present. Mental Status: She is alert and oriented to person, place, and time. Psychiatric: Mood and Affect: Mood normal. Behavior: Behavior normal. Thought Content: Thought content normal. Judgment: Judgment normal. Assessment and Plan Physical exam findings as noted above. Rapid strep test is immediately positive. Patient was provided with prescriptions for Augmentin 875-125 mg and prednisone 20 mg. Supportive care instructions were discussed and patient verbalizes excellent understanding of same. CLINICAL IMPRESSION: Acute Streptococcal Tonsillitis ASSESSMENT/PLAN: 1. Acute non-recurrent streptococcal tonsillitis - ICD9: 034.0, ICD10: J03.00 - AMOXICILLIN 875 MG-POTASSIUM CLAVULANATE 125 MG TABLET - PREDNISONE 20 MG TABLET MDM Amount and/or Complexity of Data Reviewed Clinical lab tests: ordered and reviewed Risk of Complications, Morbidity, and/or Mortality Presenting problems: low Diagnostic procedures: low Management options: raza Cantu PA-C Allergies As of Date: 02/12/2025 (No Known Allergies) Date Reviewed: 02/12/2025 Reviewed by: Robina Ring MA - Fully Assessed Reason for Visit: Sore Throat [200] Cmt: Throat is painful, hard to swallow Primary Visit Diagnosis:Acute non-recurrent streptococcal tonsillitis [J03.00] Order(s):amoxicillin -clavulanate potassium (AUGMENTIN) 875-125 mg per tabletTake 1 tablet by mouth two times a day for 10 days.Disp: 20 tabletRfl: 0 predniSONE (DELTASONE) 20 mg tabletTake 1 tablet by mouth two times a day for 5 days.Disp: 10 tabletRfl: 0 STREP A MOLECULAR (POC) [[id number]] Order #: [id number]. #:[id number] Prescriptions as of 02/12/2025 - amoxicillin-clavulan ate potassium (AUGMENTIN) 875-125 mg per tablet Take 1 tablet by mouth two times a day for 10 days. - predniSONE (DELTASONE) 20 mg tablet Take 1 tablet by mouth two times a day for 5 days. - dexAMETHasone (DECADRON) 1 mg tablet Take the tablet at around 11 pm and go for labs the next morning Problem List As Of Date: 02/12/2025 (None) Prescriptions ordered this encounter Disp Refills Start End AMOXICILLIN 875 MG-POTASSIUM CLAVULA* 20 t* 0 02/12/2025 02/22/2025 Route: PO Sig: Take 1 tablet by mouth two times a day for 10 days. PREDNISONE 20 MG TABLET 10 t* 0 02/12/2025 02/17/2025 Route: PO Sig: Take 1 tablet by mouth two times a day for 5 days. Level of Service: OFFICE/OUTPATIENT NEW LOW MDM 30 MINUTES [07311] Encounter Numb (more content not included)... Normal [facility] STREP A MOLECULAR (POC)on Interpretation and review of laboratory results Abnormal [facility] Procedural Control Valid [facility] Strep A (POCT) Positive Abnormal Negative [facility] 11-06-2023 [facility] HbA1c (Bld)on 10-26-2023 Average glucose Estimated from glycated hemoglobin (Bld) [Mass/Vol] 94 mg/dL [facility] HbA1c (Bld) [Mass fraction] 4.9 % 4.3 - 5.6 % [facility] Basic Metabolic Panel (Lab C ollect)on 10-10-2023 Calcium [Mass/Vol] 9.3 mg/dL 7.6 - 11. 0 mg/dL [facility] Chloride [Moles/Vol] 103 mmol/L 96 - 108 mmol/L [facility] CO2 [Moles/Vol] 24.2 mmol/L 22.0 - 29.0 mmol/L [facility] Creatinine [Mass/Vol] 0.78 mg/dL 0.50 - 1.00 mg/dL [facility] Glucose [Mass/Vol] 111 mg/dL High 70 - 99 mg/dL [facility] Comment on above: Criteria for Diagnos is of Diabetes: Fasting Specimen (no caloric intake for at least 8 hours): <100 mg/dL Normal 100-125 mg/dL Increased risk for Diabetes >125 mg/dL Diagnostic for Diabetes Random Glucose (any time of day without regard to last meal): > or = 200 mg/dL plus Classic Symptoms of Diabetes Potassium [Moles/Vol] 3.6 mmol/L 3.3 - 5.1 mmol/L [facility] Sodium [Moles/Vol] 140 mmol/L 133 - 145 mmol/L [facility] Urea nitrogen [Mass/Vol] 11 mg/dL 4 - 19 mg/dL [facility] Complete Blood Count with Di fferentialon 10-10-2023 Basophils/100 WBC (Bld) 0.50 % 0.00 - 1.00 % [facility] Differential Complete Automated [facility] Eosinophils/100 WBC (Bld) 1.60 % 0.00 - 3.00 % [facility] Erythrocyte distribution width (RBC) [Ratio] 12.1 % 0.0 - 14.4 % [facility] Hematocrit (Bld) [Volume fraction] 36.6 % Low 37.0 - 46.0 % [facility] Hemoglobin (Bld) [Mass/Vol] 12.9 g/dL 12.0 - 15.0 g/dl [facility] Immature granulocytes/100 WBC (Bld) 0.20 % [facility] Comment on above: Immature Granulocyte Percent includes promyelocytes, myelocytes, and metamyelocytes. IG% > 1.0 indicates a left shift is present. With automated differentials, bands are included in the neutrophil count and not in the Immature Granulocyte Percent. Interpretation and review of laboratory results Abnormal [facility] Lymphocytes/100 WBC (Bld) 35.6 % 25.0 - 45.0 % [facility] MCH (RBC) [Entitic mass] 30.9 pg 25.0 - 35.[address] [facility] MCHC 35.2 % 31.0 - 37.0 % [facility] MCV (RBC) [Entitic vol] 87.6 fL 78.0 - 96.[address] [facility] Monocytes/100 WBC (Bld) 7.90 % High 3.00 - 6.00 % [facility] Neutrophils (Bld) [#/Vol] 2.4 10*3/uL [facility] Neutrophils/100 WBC (Bld) 54.2 % 34.0 - 64.0 % [facility] Nucleated RBC/100 WBC (Bld) [Ratio] 0.0 % -1.0 - 0.0 % [facility] Platelet mean volume (Bld) [Entitic vol] 9.[address] [facility] Comment on above: MPV is platelet range and age dependent Platelets (Bld) [#/Vol] 249 10*3/uL [facility] RBC (Bld) [#/Vol] 4.18 10*6/uL [facility] WBC (Bld) [#/Vol] 4.4 10*3/uL Low [facility] Release to patient->[facility] No Panel Informationon 10-10 Interpretation and review of laboratory results Abnormal [facility] Release to patient->[facility] TSH with Reflex to T4, Free (Lab Collect)on 10-10-2023 TSH with reflex to T4, Free 1.040 [facility] Vitamin D 25 hydroxy (Lab Co llect)on 10-10-2023 25 [place] Vitamin D 28 ng/mL Low 30 - 100 ng/mL [facility] Comment on above: Reference ranges pro vided by [facility] Laboratory are based on Endocrine Society Guidelines: Level: Characterization < 21 ng/mL: Vitamin D deficiency 21-29 ng/mL: Suboptimal Vitamin D status 30-100 ng/mL: Optimal Vitamin D status >100 ng/mL: Potentially toxic Vitamin D effects STREP A MOLECULAR (POC)on Procedural Control Valid [facility] Strep A (POCT) Negative Negative [facility] SARS CoV 2 RNA(COVID 19), QU ALITATIVE NAATon 06-07-2020 SARS CoV 2 RNA NOT DETECTED Normal NOT DETECTED [facility] Comment on above: Result Comment: A Not Detected (negative) test result for this test means that SARS- CoV-2 RNA was not present in the specimen above the limit of detection. A negative result does not rule out the possibility of COVID-19 and should not be used as the sole basis for treatment or patient management decisions. If COVID-19 is still suspected, based on exposure history together with other clinical findings, re-testing should be considered in consultation with public health authorities. Laboratory test results should always be considered in the context of clinical observations and epidemiological data in making a final diagnosis and patient management decisions. Please review the "Fact Sheets" and FDA authorized labeling available for health care providers and patients using the following websites: [email or web address] fact-sheet2 This test has been authorized by the FDA under an Emergency Use Authorization (EUA) for use by authorized laboratories. Due to the current public health emergency, [facility] [employer] [facility] is receiving a high volume of samples from a wide variety of swabs and media for COVID-19 testing. In order to serve patients during this public health crisis, samples from appropriate clinical sources are being tested. Negative test results derived from specimens received in non-commercially manufactured viral collection and transport media, or in media and sample collection kits not yet authorized by FDA for COVID-19 testing should be cautiously evaluated and the patient potentially subjected to extra precautions such as additional clinical monitoring, including collection of an additional specimen. Methodology: Nucleic Acid Amplification Test (NAAT) includes PCR or TMA Additional information about COVID-19 can be found at the [employer] website: [email or web address]. Performed By: #### [phone] #### [facility] [employer] [facility] [address] [place] [address], [place] [address] Denial Management Representative: Jed Hinson MD Vital Signs Date Time Vital Sign Value Performing Clinician Paula vincent 03-17-2025 17:46-0400 Body temperature 97.59 [degF] Neema Slabaugh PA-C Work Phone: [facility] 03-17-2025 17:46-0400 Body weight 75.9 kg Neema Slabaugh PA-C Work Phone: [facility] 03-17-2025 17:46-0400 Diastolic blood pressure 69 mm[Hg] Neema Slabaugh PA-C Work Phone: [facility] 03-17-2025 17:46-0400 Heart rate 95 /min Neema Slabaugh PA-C Work Phone: [facility] 03-17-2025 17:46-0400 Respiratory rate 16 /min Neema Slabaugh PA-C Work Phone: [facility] 03-17-2025 17:46-0400 SaO2% (BldA) [Mass fraction] 100 % Neema Slabaugh PA-C Work Phone: [facility] 03-17-2025 17:46-0400 Systolic blood pressure 131 mm[Hg] Neema Slabaugh PA-C Work Phone: [facility] 02-12-2025 10:15-0400 Body temperature 99.3 [degF] Maxim Clutter PA-C Work Phone: [facility] 02-12-2025 10:15-0400 Body weight 76.2 kg Maxim Clutter PA-C Work Phone: [facility] 02-12-2025 10:15-0400 Diastolic blood pressure 76 mm[Hg] Maxim Clutter PA-C Work Phone: [facility] 02-12-2025 10:15-0400 Heart rate 128 /min Maxim Clutter PA-C Work Phone: [facility] 02-12-2025 10:15-0400 Respiratory rate 16 /min Maxim Clutter PA-C Work Phone: [facility] 02-12-2025 10:15-0400 SaO2% (BldA) [Mass fraction] 100 % Maxim Clutter PA-C Work Phone: [facility] 02-12-2025 10:15-0400 Systolic blood pressure 132 mm[Hg] Maxim Clutter PA-C Work Phone: [facility] 01-09-2024 09:14-0400 Body height 170.2 cm Ema Chauhan MD Work Phone: [facility] 01-09-2024 09:14-0400 Body mass index (BMI) [Percentile] Per age and sex 90.36 % Ema Chauhan MD Work Phone: [facility] 01-09-2024 09:14-0400 Body mass index (BMI) [Ratio] 27.82 kg/m2 Ema Chauhan MD Work Phone: [facility] 01-09-2024 09:14-0400 Body temperature 98.29 [degF] Ema Chauhan MD Work Phone: [facility] 01-09-2024 09:14-0400 Body weight 80.56 kg Ema Chauhan MD Work Phone: [facility] 01-09-2024 09:14-0400 Heart rate 80 /min Ema Chauhan MD Work Phone: [facility] 01-09-2024 09:14-0400 SaO2% (BldA) [Mass fraction] 99 % Ema Chauhan MD Work Phone: [facility] 12-25-2023 07:56-0400 Body height 170.2 cm Ema Chauhan MD Work Phone: [facility] 12-25-2023 07:56-0400 Body mass index (BMI) [Percentile] Per age and sex 90.68 % Ema Chauhan MD Work Phone: [facility] 12-25-2023 07:56-0400 Body mass index (BMI) [Ratio] 27.94 kg/m2 Ema Chauhan MD Work Phone: [facility] 12-25-2023 07:56-0400 Body temperature 98.29 [degF] Ema Chauhan MD Work Phone: [facility] 12-25-2023 07:56-0400 Body weight 80.92 kg Ema Chauhan MD Work Phone: [facility] 12-25-2023 07:56-0400 Diastolic blood pressure 66 mm[Hg] Ema Chauhan MD Work Phone: [facility] 12-25-2023 07:56-0400 Heart rate 98 /min Ema Chauhan MD Work Phone: [facility] 12-25-2023 07:56-0400 SaO2% (BldA) [Mass fraction] 99 % Ema Chauhan MD Work Phone: [facility] 12-25-2023 07:56-0400 Systolic blood pressure 128 mm[Hg] Ema Chauhan MD Work Phone: [facility] 11-23-2023 15:10-0400 Body weight 81.92 kg Vianey Mari MD Work Phone: [facility] 11-23-2023 15:10-0400 Diastolic blood pressure 70 mm[Hg] Vianey Mari MD Work Phone: [facility] 11-23-2023 15:10-0400 Systolic blood pressure 120 mm[Hg] Vianey Mari MD Work Phone: [facility] 10-26-2023 10:59-0500 Body weight 80.29 kg Vianey Mari MD Work Phone: [facility] 10-26-2023 10:59-0500 Diastolic blood pressure 70 mm[Hg] Vianey Mari MD Work Phone: [facility] 10-26-2023 10:59-0500 Systolic blood pressure 126 mm[Hg] Vianey Mari MD Work Phone: [facility] 07-13-2022 09:43-0500 Body temperature 97.59 [degF] Carine Verde [employer]ATED [employer] TRUCK DRIVER.FLOCCULATOR OPERATOR Work Phone: [facility] 07-13-2022 09:43-0500 Body weight 71.67 kg Carine Verde REFRIGERATED NATIONAL TRUCK DRIVER.FLOCCULATOR OPERATOR Work Phone: [facility] 07-13-2022 09:43-0500 Diastolic blood pressure 57 mm[Hg] Carine Verde REFRIGERATED NATIONAL TRUCK DRIVER.FLOCCULATOR OPERATOR Work Phone: [facility] 07-13-2022 09:43-0500 Heart rate 75 /min Carine Verde REFRIGERATED NATIONAL TRUCK DRIVER.FLOCCULATOR OPERATOR Work Phone: [facility] 07-13-2022 09:43-0500 Respiratory rate 18 /min Carine Verde REFRIGERATED NATIONAL TRUCK DRIVER.FLOCCULATOR OPERATOR Work Phone: [facility] 07-13-2022 09:43-0500 SaO2% (BldA) [Mass fraction] 100 % Carine Verde REFRIGERATED NATIONAL TRUCK DRIVER.FLOCCULATOR OPERATOR Work Phone: [facility] 07-13-2022 09:43-0500 Systolic blood pressure 122 mm[Hg] Carine Verde REFRIGERATED NATIONAL TRUCK DRIVER.FLOCCULATOR OPERATOR Work Phone: [facility] Encounters Encounter Date Encounter Type Care Provider Facility Start: 06-20-2025 [facility] Facility :[facility] Start: 06-16-2025 ambulatory [facility] Facility :[facility] Start: 05-23-2025 End: 05-23-2025 [facility] Facility:[facility] Start: 04-29-2025 End: 04-29-2025 ambulatory NHUNG [facility] Start: 03-17-2025 End: 03-17-2025 Patient encounter procedure Neema Waters PA-C Work Phone: [facility] Comment on above: Strep pharyngitis (P rimary Dx) Start: 03-17-2025 End: 03-17-2025 ambulatory NEEMA WATERS Facility:[facility] Start: 02-25-2025 End: 02-25-2025 ambulatory NHUNG [facility] Start: 02-12-2025 End: 02-12-2025 ambulatory MAXIM CANTU Facility:[facility] Start: 02-12-2025 End: 02-12-2025 Office outpatient new 30 minutes Maxim Cantu PA-C Work Phone: [facility] Comment on above: Acute non-recurrent streptococcal tonsillitis (Primary Dx) Start: 01-09-2024 End: 01-09-2024 Patient encounter procedure Ema Chauhan MD Work Phone: Endocrinology Comment on above: Irregular periods/me nstrual cycles (Primary Dx); High serum dehydroepiandrosterone (DHEA); PCOS (polycystic ovarian syndrome) Start: 12-25-2023 End: 12-25-2023 Patient encounter procedure Ema Chauhan MD Work Phone: Endocrinology Comment on above: Elevated DHEA (Prima ry Dx) Start: 11-23-2023 End: 11-23-2023 Patient encounter procedure Vianey Mari MD Work Phone: OB/Gynecology Comment on above: Elevated DHEA (Prima ry Dx); DUB (dysfunctional uterine bleeding); Elevated testosterone level Start: 11-06-2023 End: 11-06-2023 Subsequent hospital visit by physician [facility] Work Phone: Radiology Comment on above: Irregular periods [N 92.6] Start: 10-26-2023 End: 10-26-2023 Patient encounter procedure Vianey Mari MD Work Phone: OB/Gynecology Comment on above: Irregular periods (P rimary Dx) Start: 10-10-2023 End: 10-10-2023 Subsequent hospital visit by physician Nhung Barron MD Work Phone: [facility] - [place] Comment on above: Heart palpitations; Fatigue, unspecified type Start: 07-13-2022 End: 07-13-2022 Patient encounter procedure Carine Coatschristy BONILLA.FLOCCULATOR OPERATOR Work Phone: [facility] Comment on above: Viral URI with cough (Primary Dx); Pharyngitis, unspecified etiology Procedures Date Procedure Procedure Detail Performing Clinician Start: 03-17-2025 Iadna streptococcus group a amplified probe tq Neema Waters PA-C Work Phone: Start: 02-12-2025 Iadna streptococcus group a amplified probe tq [facility] Provider Start: 11-06-2023 Us pelvic nonobstetr ic real-time image complete Vianey Mari MD Work Phone: Start: 10-10-2023 Basic metabolic 2000 panel - Serum or Plasma Nhung Barron MD Work Phone: Start: 10-10-2023 COMPLETE BLOOD COUNT WITH DIFFERENTIAL Nhung Barron MD Work Phone: Start: 10-10-2023 TSH WITH REFLEX TO T4, FREE Nhung Barron MD Work Phone: Start: 10-10-2023 VITAMIN D 25 HYDROXY(VITAMIN D DEFICIENCY) Nhung Barron MD Work Phone: Start: 07-13-2022 STREP A MOLECULAR (POC) [facility] Provider Plan of Treatment Date Care Activity Detail Author Start: 02-15-2027 Tetanus Diphtheria a nd Pertussis Vaccines (7 - Td or Tdap) Tetanus Diphtheria and Pertussis Vaccines (7 - Td or Tdap) [facility] Start: 02-15-2027 Urine microalbumin profile DTaP,Tdap,Td Vaccine (7 - Td or Tdap) [facility] Start: 05-05-2025 Influenza vaccination [facility] Start: 05-05-2024 Covid-19 Vaccine ( season) Covid-19 Vaccine ( season) [facility] Start: 05-05-2024 Influenza vaccination Influenz a Vaccine (Season Ended) [facility] Start: 01-09-2024 End: 01-09-2024 Patient encounter procedure 01/09/2024 9:20 AM EDT Office Visit Endocrinology [address] [place] [address] Ema Chauhan MD [address] [place] [address] 2 WK F/U Endocrinology Comment on above: 2 WK F/U Start: 12-26-2023 End: 12-26-2023 ambulatory 12/26/2023 7:45 AM EDT Results Only Marciano Shipleywn [facility] [address] [place] [address] LABS [facility] Comment on above: LABS Start: 12-25-2023 End: 03-25-2024 Cortisol [Mass/volume] in Serum or Plasma --post dose dexamethasone CORTISOL SUPRES POST Lab Routine Elevated DHEA Expected: 12/25/2023, Expires: 03/25/2024 [facility] Comment on above: Expected: 12/25/2023 , Expires: 03/25/2024 Start: 12-25-2023 End: 03-25-2024 DEXAMETHASONE DEXAMETHASONE Lab Routine Elevated DHEA Expected: 12/25/2023, Expires: 03/25/2024 [facility] Work Phone: Comment on above: Expected: 12/25/2023 , Expires: 03/25/2024 Start: 10-26-2023 End: 01-25-2024 17-Hydroxyprogesterone [Mass/volume] in Serum or Plasma [facility] Work Phone: Comment on above: Expected: 10/26/2023 , Expires: 01/25/2024 Start: 10-26-2023 End: 01-25-2024 DHEA-S BLD [facility] Work Phone: Comment on above: Expected: 10/26/2023 , Expires: 01/25/2024 Start: 10-26-2023 End: 01-25-2024 Estradiol (E2) [Mass/volume] in Serum or Plasma [facility] Work Phone: Comment on above: Expected: 10/26/2023 , Expires: 01/25/2024 Start: 10-26-2023 End: 01-25-2024 Follitropin [Units/volume] in Serum or Plasma [facility] Work Phone: Comment on above: Expected: 10/26/2023 , Expires: 01/25/2024 Start: 10-26-2023 End: 01-25-2024 Lutropin [Units/volume] in Serum or Plasma [facility] Work Phone: Comment on above: Expected: 10/26/2023 , Expires: 01/25/2024 Start: 10-26-2023 End: 01-25-2024 Prolactin [Mass/volume] in Serum or Plasma [facility] Work Phone: Comment on above: Expected: 10/26/2023 , Expires: 01/25/2024 Start: 10-26-2023 End: 01-25-2024 TESTOSTERONE, FREE AND TOTAL [facility] Work Phone: Comment on above: Expected: 10/26/2023 , Expires: 01/25/2024 Start: 10-26-2023 End: 10-26-2024 US Pelvis PELVIC [facility] Anc Imaging Routine Irregular periods Expected: 10/26/2023, Expires: 10/26/2024 [facility] Work Phone: Comment on above: Expected: 10/26/2023 , Expires: 10/26/2024 Start: 10-11-2023 End: 10-11-2023 Patient encounter procedure 10/11/2023 11:30 AM EST Office Visit [address] [address] [place] [address] [facility] Start: 09-04-2023 Behavioral Health Screening Behavioral Health Screening [facility] Start: 09-04-2023 Depression Assessment Depression Ass essment [facility] Start: 05-05-2023 Covid-19 Vaccine ( season) Covid-19 Vaccine ( season) [facility] Start: 05-05-2023 FLU (#1) FLU (#1) [facility] Start: 05-05-2023 Influenza vaccination Influenza Vacc ine (#1) [facility] Start: 2023 Anxiety Screening [facility]ening [facility] [facility] Start: 2023 Depression Screening Depression Scre ening [facility] Start: 2023 GC (Gonorrhea) Screening (18-24) GC (Gonorrhea) Screening (18-24) [facility] Start: 2023 Hearing Screening Hearing Screening [facility] Start: 2023 Hepatitis C screening Hepatitis C Sc reening [facility] Start: 2023 HIV screening HIV Screening [facility] Start: 2023 Screening for Chlamy doris trachomatis Chlamydia Screening (18-) [facility] Start: 05-05-2022 Influenza vaccination INFLUENZA (#1) [facility] Start: 03-10-2022 Well Visit Well Visit [facility] Start: 09-10-2021 Meningococcal B Vacc ine (2 of 2 - Bexsero SCDM 2-dose series) Meningococcal B Vaccine (2 of 2 - Bexsero SCDM 2-dose series) [facility] Start: 04-07-2021 MenB (2 of 2 - MenB 2-Dose Series Bexsero) MenB (2 of 2 - MenB 2-Dose Series Bexsero) [facility] Start: 04-07-2021 Meningococcal B Vaccine: Consider Based On Risk (2 of 2 - Risk Bexsero 2-dose series) Meningococcal B Vaccine: Consider Based On Risk (2 of 2 - Risk Bexsero 2-dose series) [facility] Start: 2021 MENINGOCOCCAL CONJUG ATE (1 - 2-dose series) MENINGOCOCCAL CONJUGATE (1 - 2-dose series) [facility] Start: 2020 CHLAMYDIA SCREENING (<18) CHLAMYDIA SCREENING (<18) [facility] Start: 2020 GC (GONORRHEA) SCREENING (<18) GC (GONORRHEA) SCREENING (<18) [facility] Start: 2019 PEDS TO ADULT TRANSITION ANNUAL ASSESSMENT PEDS TO ADULT TRANSITION ANNUAL ASSESSMENT [facility] Start: 2017 Adult depression screening assessment DEPRESSION SCREENING [facility] Start: 2017 PEDS TO ADULT TRANSITION INITIAL DISCUSSION PEDS TO ADULT TRANSITION INITIAL DISCUSSION [facility] Start: 2016 HPV VACCINE (1 - 2-d ose series) HPV VACCINE (1 - 2-dose series) [facility] Start: 2015 MENINGOCOCCAL B: Consider based on risk (1 of 2 - Risk Bexsero 2-dose series) MENINGOCOCCAL B: Consider based on risk (1 of 2 - Risk Bexsero 2-dose series) [facility] Start: 2012 Urine microalbumin profile DTAP,TDAP,TD (1 - Tdap) [facility] Start: 2006 MMR (1 of 2 - Standa rd series) MMR (1 of 2 - Standard series) [facility] Start: 2006 VARICELLA (1 of 2 - 2-dose childhood series) VARICELLA (1 of 2 - 2-dose childhood series) [facility] Start: 2005 COVID-19 (#1) COVID-19 (#1) [facility] Start: 2005 COVID-19 VACCINE (#1) COVID-19 VACCI NE (#1) [facility] Start: 2005 POLIO (1 of 3 - 4-do se series) POLIO (1 of 3 - 4-dose series) [facility] Start: 2005 HEPATITIS B (1 of 3 - 3-dose series) HEPATITIS B (1 of 3 - 3-dose series) [facility] End: 11-24-2024 US Pelvis US FEMALE PELVIS NON-OB NON-TORSION (NO TRANSVAG) Radiology Routine Irregular periods 1 Occurrences starting 10/26/2023 until 11/24/2024 [facility] Work Phone: Comment on above: 1 Occurrences starti ng 10/26/2023 until 11/24/[address] [facility] Immunizations Immunization Date Immunization Notes Care Provider Daren rodriguez 03-10-2021 meningococcal B vacc ine, recombinant, OMV, adjuvanted Nhung Barron MD Work Phone: [facility] 03-10-2021 meningococcal polysaccharide (groups A, C, Y and W-135) diphtheria toxoid conjugate vaccine (MCV4P) Nhung Barron MD Work Phone: [facility] 07-06-2019 influenza, injectabl e, quadrivalent, preservative free Nhung Barron MD Work Phone: [facility] 07-06-2019 influenza virus vacc ine, unspecified formulation Vianey Mari MD Work Phone: [facility] 02-27-2019 Human Papillomavirus 9-valent vaccine Nhung Barron MD Work Phone: [facility] 07-14-2018 influenza, injectabl e, quadrivalent, preservative free Nhung Barron MD Work Phone: [facility] 02-21-2018 Human Papillomavirus 9-valent vaccine Nhung Barron MD Work Phone: [facility] 07-08-2017 influenza, injectabl e, quadrivalent, preservative free Nhung Barron MD Work Phone: [facility] 02-15-2017 meningococcal polysaccharide (groups A, C, Y and W-135) diphtheria toxoid conjugate vaccine (MCV4P) Nhung Barron MD Work Phone: [facility] 02-15-2017 tetanus toxoid, redu brenda diphtheria toxoid, and acellular pertussis vaccine, adsorbed Nhung Barron MD Work Phone: [facility] 07-23-2016 influenza, injectabl e, quadrivalent, preservative free Nhung Barron MD Work Phone: [facility] 07-04-2015 influenza, injectabl e, quadrivalent, preservative free Nhung Barron MD Work Phone: [facility] 06-27-2014 influenza, injectabl e, quadrivalent, preservative free Nhung Barron MD Work Phone: [facility] 08-08-2013 Influenza Vaccine 0. 5 mL >= 3 Yr Trivalent Nhung Barron MD Work Phone: [facility] 06-16-2012 influenza virus vacc ine, split virus (incl. purified surface antigen) Nhung Barron MD Work Phone: [facility] 05-27-2011 influenza virus vacc ine, split virus (incl. purified surface antigen) Nhung Barron MD Work Phone: [facility] 06-26-2010 influenza virus vacc ine, split virus (incl. purified surface antigen) Nhung Barron MD Work Phone: [facility] 03-23-2010 diphtheria, tetanus toxoids and acellular pertussis vaccine Nhung Barron MD Work Phone: [facility] 03-23-2010 measles, mumps, rube lla, and varicella virus vaccine Nhung Barron MD Work Phone: [facility] 03-23-2010 poliovirus vaccine, inactivated Nhung Barron MD Work Phone: [facility] 08-25-2009 novel influenza-H1N1 -09, preservative-free, injectable Nhung Barron MD Work Phone: [facility] 07-15-2009 novel influenza-H1N1 -09, preservative-free, injectable Nhung Barron MD Work Phone: [facility] 05-20-2009 influenza virus vacc ine, unspecified formulation Nhung Barron MD Work Phone: [facility] 06-27-2008 influenza virus vacc ine, unspecified formulation Nhung Barron MD Work Phone: [facility] 07-07-2007 influenza virus vacc ine, unspecified formulation Nhung Barron MD Work Phone: [facility] 03-05-2007 hepatitis A vaccine, pediatric/adolescent dosage, 2 dose schedule Nhung Barron MD Work Phone: [facility] 07-21-2006 diphtheria, tetanus toxoids and acellular pertussis vaccine Nhung Barron MD Work Phone: [facility] 07-21-2006 influenza virus vacc ine, unspecified formulation Nhung Barron MD Work Phone: [facility] 07-21-2006 pneumococcal conjuga te vaccine, 7 valent Nhung Barron MD Work Phone: [facility] 07-21-2006 varicella virus vaccine Montez Barron MD Work Phone: [facility] 03-06-2006 haemophilus influenz ae type b conjugate and Hepatitis B vaccine Nhung Barron MD Work Phone: [facility] 03-06-2006 hepatitis A vaccine, pediatric/adolescent dosage, 2 dose schedule Nhung Barron MD Work Phone: [facility] 03-06-2006 measles, mumps and rubella virus vaccine Nhung Barron MD Work Phone: [facility] 2005 poliovirus vaccine, inactivated Nhung Barron MD Work Phone: [facility] 2005 diphtheria, tetanus toxoids and acellular pertussis vaccine Nhung Barron MD Work Phone: [facility] 2005 haemophilus influenz ae type b vaccine, PRP-T conjugate Nhung Barron MD Work Phone: [facility] 2005 influenza virus vacc ine, unspecified formulation Nhung Barron MD Work Phone: [facility] 2005 pneumococcal conjuga te vaccine, 7 valent Nhung Barron MD Work Phone: [facility] 2005 diphtheria, tetanus toxoids and acellular pertussis vaccine Nhung Barron MD Work Phone: [facility] 2005 haemophilus influenz ae type b vaccine, PRP-T conjugate Nhung Barron MD Work Phone: [facility] 2005 pneumococcal conjuga te vaccine, 7 valent Nhung Barron MD Work Phone: [facility] 2005 poliovirus vaccine, inactivated Nhung Barron MD Work Phone: [facility] 2005 diphtheria, tetanus toxoids and acellular pertussis vaccine Nhung Barron MD Work Phone: [facility] 2005 haemophilus influenz ae type b conjugate and Hepatitis B vaccine Nhung Barron MD Work Phone: [facility] 2005 pneumococcal conjuga te vaccine, 7 valdominic Barron MD Work Phone: [facility] 2005 poliovirus vaccine, inactivated Nhung Barron MD Work Phone: [facility] 2005 hepatitis B vaccine, pediatric or pediatric/adolescent dosage Nhung Barron MD Work Phone: [facility] Payers Date Payer Category Payer Private Health Insurance [id number] 2025 Self-pay 2019 Private Health Insurance [id number] 2019 Private Health Insurance [id number] 2005 Unknown [id number] 2005 Unknown [id number] Unknown [id number] Unknown [id number] Social History Date Type Detail Facility Start: 07-13-2022 Tobacco smoking status MAIS Tobacco smoking consumption unknown [facility] Start: 2005 Sex Assigned At Not on file [facility] Start: 07-03-2022 End: 07-13-2022 Exposure to SARS-CoV-2 (event) Not sure [facility] Start: 11-28-2022 End: 10-26-2023 Tobacco smoking status NHIS Never smoked tobacco [facility] Start: 11-28-2022 End: 10-26-2023 Tobacco use and exposure Smokeless tobacco non-user [facility] Start: 10-10-2023 Alcohol intake Not Asked [facility] Start: 10-10-2023 End: 11-23-2023 History of Social function [facility] Start: 10-10-2023 End: 11-23-[address] [facility] Adolescent depressio n screening assessment 0 [facility] Start: 10-26-2023 End: 01-09-2024 Alcohol intake Lifetime non-drinker (finding) [facility] Start: 2005 Sex Assigned At [facility] NEGATED: Highlighted rowStart: AMILCARF History of tobacco use Passive smoker [facility] Clinical Notes 07-13-2022 to 05-23-2025 Patient InstructionsSNeema cortés PA-C - 03/17/2025 5:52 PM SILVIATCMaxim shelton PA-C - 02/12/2025 10:26 AM Ema Davies MD - 01/09/2024 9:17 AM EDTPatient Instructions Note Date & Type Note Facility 05-23-2025 Note HNO ID: [id number] Author: LENORA MCDANIELS APRN.FLOCCULATOR OPERATOR Service: ? Author Type: Nurse Practitioner Type: Progress Notes Filed: 05/23/2025 09:03 Note Text: Obstetrics and Gynecology [place] REMARKETING REP Visit Subjective Recording using OpenLabel software for draft documentation of the visit was discussed with the patient/authorized insurance verification representative; all questions welcomed and answered. Patient/authorized insurance verification representative agreed to proceed CHIEF COMPLAINT: The patient is a 20-year-old female with PCOS, presenting for evaluation of abnormal uterine bleeding and management of irregular menstrual cycles. HPI: Menstrual History - Reports irregular menstrual cycles, with periods occurring once a month for a few months at the beginning of the year, followed by an absence of periods in February and March. - Last menstrual period was at the end of April, lasting approximately four days with no significant heavy bleeding. - Experiences cramping and feeling "sick" a week before the onset of menstruation. - Denies significant cramping during menstruation. PCOS - Suspected diagnosis of PCOS made approximately a year ago, but no treatment was initiated at that time. - Reports excess vaginal discharge, but denies any unusual odor or color changes. 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 levalbuterol (XOPENEX) 1.25 mg/3 mL nebulizer solution Use 1.25 mg via nebulizer every 4 hours as needed. Ethinyl Estradiol-Norelgestrom (XULANE) 150-35 mcg/24 hr patch Apply 1 patch as directed one time a week. No current facility-administered medications for this visit. ALLERGIES No Known Allergies REVIEW OF SYSTEMS: Constitutional: (+) malaise Genitourinary: (+) irregular menses, (+) pelvic pain, (+) increased vaginal discharge, (-) heavy menstrual bleeding, (-) vaginal pruritus, (-) malodorous vaginal discharge Objective SENSITIVE EXAM: Sensitive exam not performed. PHYSICAL EXAM: BP 110/62 Wt 164 lb 3.2 oz (74.5kg) LMP 04/26/2025 GENERAL: Pleasant, well-appearing, in no apparent distress PULMONARY: normal inspiratory effort NEURO: alert and oriented x3 EXTREMITIES: normal Assessment AND Plan ASSESSMENT AND PLAN: 1. PCOS (polycystic ovarian syndrome) (E28.2) 2. Irregular menstrual cycle (N92.6) 3. Encounter for other contraceptive management (Z30.8) - History of irregular menses, likely secondary to PCOS; previously discussed but not treated with hormonal therapy. - Start contraceptive patch to regulate menstrual cycles and manage PCOS symptoms. - Discussed alternative of oral contraceptive pills, including differences in convenience and dosing flexibility; patient prefers patch. - Educated on proper patch application, expected side effects, and the possibility of breakthrough bleeding or spotting during the first month. - Provided written information on side effects and when to contact the office for heavy bleeding, severe cramping, or nausea. - Follow-up in 3 months to assess symptom improvement and menstrual regularity. Lenora Mcdaniels APRN.CLAUDIA Medical Decision Making: Problems: Low: Acute, uncomplicated illness or injury Risk: Moderate: Drug management Medical Decision Making Level: 3 - Low [1] Social History Tobacco Use Smoking status: Never Smokeless tobacco: Never Vaping Use Vaping status: Never Used Substance Use Topics Alcohol use: Never Drug use: Never [facility] 03-17-2025 Instructions Neema Waters PA-C - 03/17/2025 5:58 PM EDT ASSESSMENT/PLAN: 1. Strep pharyngitis - STREP A MOLECULAR (POC)- positive - AMOXICILLIN 500 MG CAPSULE Discussed OTC options: Encourage fluids, rest. Tylenol and Motrin for pain or fever Warm salt water gargles. Try Cepocol lozenges or Chloraseptic throat spray. Take entire course of Antibiotics. - See patient instructions for further recommendations. - Pt education along with discharge instructions given to pt - Pt agreeable with plan and verbalizes understanding. - Follow up with PCP if symptoms worsen or do not improve in the next 2-3 days. - Discussed Red Flag signs and when to go to ER. - If symptoms worsen, or new symptoms develop go to ER. - If you have worsening of breathing or breathing changes- go to ER. - If you have persistent fever unrelieved by Tylenol/Motrin- go to the ER. Neema Waters PA-C 5:52 PM 03/17/25 documented in this encounter [facility] 03-17-2025 Note HNO ID: [id number] Author: NEEMA WATERS PA-C Service: ? Author Type: Physician Client Reporting Associate Type: Progress Notes Filed: 03/17/2025 18:02 Note Text: PATIENT NAME: Catalina Gerber DATE OF : 2005 TODAYS' DATE: 03/17/2025 Surgical mask and gloves worn for all in-person care. SUBJECTIVE: Patient presents with: Sore Throat: Sore throat last couple days. Head ache. Hurt to swallow. HPI per the patient. History of Present Illness: This is a 20 year old with a PMHx of asthma that is here today for acute onset sore throat and SMITH for a couple of days. No sinus, cough, n/v, SMITH, or rash. No other URI or sick symptoms. Denies fever, chills, sweats, or fatigue. Patient denies wheezing, shortness of breath, increased WOB, or chest pain. Chart review: PMHx of asthma Pain on scale of 0-10 with 0 being no pain and 10 being greatest pain: - Self-treatment:. Ibuprofen Barriers to learning: none. Reviewed meds, OTCs, herbals or supplements. Reviewed allergies, medications, social history, and past medical history. Allergies: Allergies: No Known Allergies ALLERGIES Patient has no known allergies. Past Medical History: PAST MEDICAL HISTORY Diagnosis Date Asthma Past Surgical History: PAST SURGICAL HISTORY Procedure Laterality Date NONE Family History: FAMILY HISTORY Problem Relation Age of Onset Thyroid Nodule Sister other (pcos) Sister other (pcos) Sister Hypothyroidism Maternal Aunt Thyroid Paternal Aunt Thyroid Paternal Aunt Thyroid Cancer Paternal cousin Thyroid Cancer Paternal cousin Tobacco History: Tobacco Use: Never Medications: Current Outpatient Medications Medication Sig Dispense Refill dexAMETHasone (DECADRON) 1 mg tablet Take the tablet at around 11 pm and go for labs the next morning (Patient not taking: Reported on 01/09/2024) 1 tablet 0 No current facility-administered medications for this visit. Medications and allergies reviewed by this provider. Social history Social History Tobacco Use Smoking status: Never Smokeless tobacco: Never Vaping Use Vaping status: Never Used Substance Use Topics Alcohol use: Never Drug use: Never REVIEW OF SYSTEMS Review of Systems Constitutional: Negative. HENT: Positive for sore throat. Eyes: Negative. Respiratory: Negative. Cardiovascular: Negative. Gastrointestinal: Negative. Endocrine: Negative. Genitourinary: Negative. Musculoskeletal: Negative. Allergic/Immunologic: Negative. Neurological: Positive for headaches. Hematological: Negative. Psychiatric/Behavioral: Negative. All other systems reviewed and are negative. Vitals: BP 131/69 (BP Site: Right Arm, BP Position: Sitting, BP Cuff Size: Regular Adult) Pulse 95 Temp 36.4 ?C (97.6 ?F) (Right Tympanic) Resp 16 Wt 75.9 kg (167 lb 5.3 oz) LMP 09/13/2023 (Exact Date) SpO2 100% Physical Exam: Physical Exam Vitals reviewed. Constitutional: General: She is not in acute distress. Appearance: Normal appearance. She is well-developed and normal weight. She is not ill-appearing, toxic-appearing or diaphoretic. HENT: Head: Normocephalic and atraumatic. No right periorbital erythema or left periorbital erythema. Salivary Glands: Right salivary gland is not diffusely enlarged or tender. Left salivary gland is not diffusely enlarged or tender. Right Ear: Tympanic membrane, ear canal and external ear normal. Left Ear: Tympanic membrane, ear canal and external ear normal. Nose: Nose normal. No congestion or rhinorrhea. Right Sinus: No maxillary sinus tenderness or frontal sinus tenderness. Left Sinus: No maxillary sinus tenderness or frontal sinus tenderness. Mouth/Throat: Lips: [place]. No lesions. Mouth: Mucous membranes are moist. No oral lesions. Dentition: No gum lesions. Tongue: No lesions. Tongue does not deviate from midline. Palate: No mass and lesions. Pharynx: Oropharynx is clear. Uvula midline. Posterior oropharyngeal erythema present. No pharyngeal swelling, oropharyngeal exudate, uvula swelling or postnasal drip. Tonsils: No tonsillar exudate or tonsillar abscesses. 1+ on the right. 1+ on the left. Eyes: General: Lids are normal. No scleral icterus. Right eye: No discharge. Left eye: No discharge. Extraocular Movements: Extraocular movements intact. Conjunctiva/sclera: Conjunctivae normal. Pupils: Pupils are equal, round, and reactive to light. Pupils are equal. Cardiovascular: Rate and Rhythm: Normal rate and regular rhythm. Heart sounds: Normal heart sounds. Pulmonary: Effort: Pulmonary effort is normal. Breath sounds: Normal breath sounds and air entry. Musculoskeletal: Cervical back: Full passive range of motion without pain. No spinous process tenderness or muscular tenderness. Lymphadenopathy: Head: Right side of head: Tonsillar adenopathy present. No submental, submandibular, preauricular or posterior auricular adenopathy. Left side (more content not included)... [facility] 03-17-2025 History of Present illness Narrative Images from the original note were not included. PATIENT NAME: Catalina Gerber DATE OF : 2005 TODAYS' DATE: 03/17/2025 Surgical mask and gloves worn for all in-person care. SUBJECTIVE: Patient presents with: Sore Throat: Sore throat last couple days. Head ache. Hurt to swallow. HPI per the patient. History of Present Illness: This is a 20 year old with a PMHx of asthma that is here today for acute onset sore throat and SMITH for a couple of days. No sinus, cough, n/v, SMITH, or rash. No other URI or sick symptoms. Denies fever, chills, sweats, or fatigue. Patient denies wheezing, shortness of breath, increased WOB, or chest pain. Chart review: PMHx of asthma Pain on scale of 0-10 with 0 being no pain and 10 being greatest pain: - Self-treatment:. Ibuprofen Barriers to learning: none. Reviewed meds, OTCs, herbals or supplements. Reviewed allergies, medications, social history, and past medical history. Allergies: Allergies: No Known Allergies ALLERGIES Patient has no known allergies. Past Medical History: PAST MEDICAL HISTORY Diagnosis Date Asthma Past Surgical History: PAST SURGICAL HISTORY Procedure Laterality Date NONE Family History: FAMILY HISTORY Problem Relation Age of Onset Thyroid Nodule Sister other (pcos) Sister other (pcos) Sister Hypothyroidism Maternal Aunt Thyroid Paternal Aunt Thyroid Paternal Aunt Thyroid Cancer Paternal cousin Thyroid Cancer Paternal cousin Tobacco History: Tobacco Use: Never Medications: Current Outpatient Medications Medication Sig Dispense Refill dexAMETHasone (DECADRON) 1 mg tablet Take the tablet at around 11 pm and go for labs the next morning (Patient not taking: Reported on 01/09/2024) 1 tablet 0 No current facility-administered medications for this visit. Medications and allergies reviewed by this provider. Social history Social History Tobacco Use Smoking status: Never Smokeless tobacco: Never Vaping Use Vaping status: Never Used Substance Use Topics Alcohol use: Never Drug use: Never REVIEW OF SYSTEMS Review of Systems Constitutional: Negative. HENT: Positive for sore throat. Eyes: Negative. Respiratory: Negative. Cardiovascular: Negative. Gastrointestinal: Negative. Endocrine: Negative. Genitourinary: Negative. Musculoskeletal: Negative. Allergic/Immunologic: Negative. Neurological: Positive for headaches. Hematological: Negative. Psychiatric/Behavioral: Negative. All other systems reviewed and are negative. Vitals: BP 131/69 (BP Site: Right Arm, BP Position: Sitting, BP Cuff Size: Regular Adult) Pulse 95 Temp 36.4 C (97.6 F) (Right Tympanic) Resp 16 Wt 75.9 kg (167 lb 5.3 oz) LMP 09/13/2023 (Exact Date) SpO2 100% Physical Exam: Physical Exam Vitals reviewed. Constitutional: General: She is not in acute distress. Appearance: Normal appearance. She is well-developed and normal weight. She is not ill-appearing, toxic-appearing or diaphoretic. HENT: Head: Normocephalic and atraumatic. No right periorbital erythema or left periorbital erythema. Salivary Glands: Right salivary gland is not diffusely enlarged or tender. Left salivary gland is not diffusely enlarged or tender. Right Ear: Tympanic membrane, ear canal and external ear normal. Left Ear: Tympanic membrane, ear canal and external ear normal. Nose: Nose normal. No congestion or rhinorrhea. Right Sinus: No maxillary sinus tenderness or frontal sinus tenderness. Left Sinus: No maxillary sinus tenderness or frontal sinus tenderness. Mouth/Throat: Lips: [place]. No lesions. Mouth: Mucous membranes are moist. No oral lesions. Dentition: No gum lesions. Tongue: No lesions. Tongue does not deviate from midline. Palate: No mass and lesions. Pharynx: Oropharynx is clear. Uvula midline. Posterior oropharyngeal erythema present. No pharyngeal swelling, oropharyngeal exudate, uvula swelling or postnasal drip. Tonsils: No tonsillar exudate or tonsillar abscesses. 1+ on the right. 1+ on the left. Eyes: General: Lids are normal. No scleral icterus. Right eye: No discharge. Left eye: No discharge. Extraocular Movements: Extraocular movements intact. Conjunctiva/sclera: Conjunctivae normal. Pupils: Pupils are equal, round, and reactive to light. Pupils are equal. Cardiovascular: Rate and Rhythm: Normal rate and regular rhythm. Heart sounds: Normal heart sounds. Pulmonary: Effort: Pulmonary effort is normal. Breath sounds: Normal breath sounds and air entry. Musculoskeletal: Cervical back: Full passive range of motion without pain. No spinous process tenderness or muscular tenderness. Lymphadenopathy: Head: Right side of head: Tonsillar adenopathy present. No submental, submandibular, preauricular or posterior auricular adenopathy. Left side of head: Tonsillar adenopathy present. No submental, submandibular, preauricular or posterior auricular adenopathy. Cervical: No cervical adenopathy. Skin: General: Skin is warm. Capillary Refill: Capillary refill takes less than 2 seconds. Findings: No rash. Neurological: General: No focal deficit present. Mental Status: She is alert and oriented to person, place, and time. Cranial Nerves: No facial asymmetry. Psychiatric: Attention and Perception: Attention normal. Behavior: Behavior is cooperative. ASSESSMENT/PLAN: 1. Strep pharyngitis - ICD9: 034.0, ICD10: J02.0 - STREP A MOLECULAR (POC)- positive - AMOXICILLIN 500 MG CAPSULE Discussed OTC options: Encourage fluids, rest. Tylenol and Motrin for pain or fever Warm salt water gargles. Try Cepocol lozenges or Chloraseptic throat spray. Take entire course of Antibiotics. - See patient instructions for further recommendations. - Pt education along with discharge instructions given to pt - Pt agreeable with plan and verbalizes understanding. - Follow up with PCP if symptoms worsen or do not improve in the next 2-3 days. - Discussed Red Flag signs and when to go to ER. - If symptoms worsen, or new symptoms develop go to ER. - If you have worsening of breathing or breathing changes- go to ER. - If you have persistent fever unrelieved by Tylenol/Motrin- go to the ER. Neema Waters PA-C 5:52 PM 03/17/25 History and Record Review External record(s) reviewed: prior outpatient record and CareEverywhere. Findings from review of outpatient records: PMHx of asthma Findings from review of CareEverywhere records: PMHx of asthma Differential Diagnoses - Strep pharyngitis is more likely for the following reason(s): suggested by H&P and consistent with laboratory studies - Viral pharyngitis is less likely for the following reason(s): H&P not suggestive and laboratory studies not suggestive - Migraine is less likely for the following reason(s): laboratory studies not suggestive Disposition The patient was discharged. OTC Medications were advised: Tylenol and Motrin for pain or fever Warm salt water gargles. Try Cepocol lozenges or Chloraseptic throat spray. Medical Decision Making: Problems: Moderate: New problem with uncertain prognosis Data: Unique source(s) for external note(s) reviewed: 2 Unique test result(s) reviewed: 1 Unique test(s) ordered: 1 Risk: Moderate: Moderate risk from testing/treatment and Drug management Medical Decision Making Level: 4 - Moderate I spent a total of 20 minutes on the date of the service which included preparing to see the patient, [id number] patient care, completing clinical documentation, obtaining and/or reviewing separately obtained history, performing a medically appropriate examination, counseling and educating the patient/family/caregiver, ordering medications, tests, or procedures, and communicating results to the patient/family/caregiver. documented in this encounter [facility] 02-12-2025 Note HNO ID: [id number] Author: MAXIM CANTU PA-C Service: ? Author Type: Physician Client Reporting Associate Type: Progress Notes Filed: 02/12/2025 10:33 Note Text: This note was created using [place] ([employer])riter. Subjective Catalina Gerber is a 19 year old female. Patient is a 19-year-old female who complains of sore throat that she has been experiencing for the past 2 days. Patient reports that when she woke this morning she felt as if her cervical lymph nodes were swollen. Patient reports no congestion, sinus pressure, ear pain, cough or other illness symptoms. Patient denies fever, chills or myalgia. Patient denies dysphagia and states she is tolerating food and fluids although it is painful to do so. Patient reports that both her father and her brother did develop group A strep tonsillitis approximately 2 weeks ago. Sore Throat Review of Systems HENT: Positive for sore throat. Hematological: Positive for adenopathy. All other systems reviewed and are negative. Objective BP 132/76 Pulse (!) 128 Temp 37.4 ?C (99.3 ?F) Resp 16 Wt 76.2 kg (167 lb 15.9 oz) LMP 09/13/2023 (Exact Date) SpO2 100% Physical Exam Vitals and nursing note reviewed. Constitutional: Appearance: Normal appearance. She is normal weight. HENT: Head: Normocephalic and atraumatic. Right Ear: External ear normal. Left Ear: External ear normal. Nose: Nose normal. Mouth/Throat: Mouth: Mucous membranes are moist. Pharynx: Oropharyngeal exudate and posterior oropharyngeal erythema present. Eyes: Extraocular Movements: Extraocular movements intact. Conjunctiva/sclera: Conjunctivae normal. Pupils: Pupils are equal, round, and reactive to light. Cardiovascular: Rate and Rhythm: Normal rate and regular rhythm. Pulses: Normal pulses. Heart sounds: Normal heart sounds. Pulmonary: Effort: Pulmonary effort is normal. Breath sounds: Normal breath sounds. Musculoskeletal: Cervical back: Normal range of motion and neck supple. Lymphadenopathy: Cervical: Cervical adenopathy present. Skin: General: Skin is warm and dry. Capillary Refill: Capillary refill takes less than 2 seconds. Neurological: General: No focal deficit present. Mental Status: She is alert and oriented to person, place, and time. Psychiatric: Mood and Affect: Mood normal. Behavior: Behavior normal. Thought Content: Thought content normal. Judgment: Judgment normal. Assessment and Plan Physical exam findings as noted above. Rapid strep test is immediately positive. Patient was provided with prescriptions for Augmentin 875-125 mg and prednisone 20 mg. Supportive care instructions were discussed and patient verbalizes excellent understanding of same. CLINICAL IMPRESSION: Acute Streptococcal Tonsillitis ASSESSMENT/PLAN: 1. Acute non-recurrent streptococcal tonsillitis - ICD9: 034.0, ICD10: J03.00 - AMOXICILLIN 875 MG-POTASSIUM CLAVULANATE 125 MG TABLET - PREDNISONE 20 MG TABLET MDM Amount and/or Complexity of Data Reviewed Clinical lab tests: ordered and reviewed Risk of Complications, Morbidity, and/or Mortality Presenting problems: low Diagnostic procedures: low Management options: raza Cantu PA-C [facility] 02-12-2025 History of Present illness Narrative This note was created using NoteWriter. Subjective Catalina Gerber is a 19 year old female. Patient is a 19-year-old female who complains of sore throat that she has been experiencing for the past 2 days. Patient reports that when she woke this morning she felt as if her cervical lymph nodes were swollen. Patient reports no congestion, sinus pressure, ear pain, cough or other illness symptoms. Patient denies fever, chills or myalgia. Patient denies dysphagia and states she is tolerating food and fluids although it is painful to do so. Patient reports that both her father and her brother did develop group A strep tonsillitis approximately 2 weeks ago. Sore Throat Review of Systems HENT: Positive for sore throat. Hematological: Positive for adenopathy. All other systems reviewed and are negative. Objective BP 132/76 Pulse (!) 128 Temp 37.4 C (99.3 F) Resp 16 Wt 76.2 kg (167 lb 15.9 oz) LMP 09/13/2023 (Exact Date) SpO2 100% Physical Exam Vitals and nursing note reviewed. Constitutional: Appearance: Normal appearance. She is normal weight. HENT: Head: Normocephalic and atraumatic. Right Ear: External ear normal. Left Ear: External ear normal. Nose: Nose normal. Mouth/Throat: Mouth: Mucous membranes are moist. Pharynx: Oropharyngeal exudate and posterior oropharyngeal erythema present. Eyes: Extraocular Movements: Extraocular movements intact. Conjunctiva/sclera: Conjunctivae normal. Pupils: Pupils are equal, round, and reactive to light. Cardiovascular: Rate and Rhythm: Normal rate and regular rhythm. Pulses: Normal pulses. Heart sounds: Normal heart sounds. Pulmonary: Effort: Pulmonary effort is normal. Breath sounds: Normal breath sounds. Musculoskeletal: Cervical back: Normal range of motion and neck supple. Lymphadenopathy: Cervical: Cervical adenopathy present. Skin: General: Skin is warm and dry. Capillary Refill: Capillary refill takes less than 2 seconds. Neurological: General: No focal deficit present. Mental Status: She is alert and oriented to person, place, and time. Psychiatric: Mood and Affect: Mood normal. Behavior: Behavior normal. Thought Content: Thought content normal. Judgment: Judgment normal. Assessment and Plan Physical exam findings as noted above. Rapid strep test is immediately positive. Patient was provided with prescriptions for Augmentin 875-125 mg and prednisone 20 mg. Supportive care instructions were discussed and patient verbalizes excellent understanding of same. CLINICAL IMPRESSION: Acute Streptococcal Tonsillitis ASSESSMENT/PLAN: 1. Acute non-recurrent streptococcal tonsillitis - ICD9: 034.0, ICD10: J03.00 - AMOXICILLIN 875 MG-POTASSIUM CLAVULANATE 125 MG TABLET - PREDNISONE 20 MG TABLET MDM Amount and/or Complexity of Data Reviewed Clinical lab tests: ordered and reviewed Risk of Complications, Morbidity, and/or Mortality Presenting problems: low Diagnostic procedures: low Management options: raza Cantu PA-C documented in this encounter [facility] 01-09-2024 History of Present illness Narrative [facility] Follow up Note Chief Complaint: Elevated DHEA HPI: This is a 18 year old female who presents after referral by her OB-REMARKETING REP for elevated DHEA-s checked for irregular cycles She was initially seen on 12/25/2023. Documentation from previous note of previous visit was copied and pasted and has been reviewed and edited as appropriate and is current for today. Hirsutism started: no No acne, or body hair History of deepening of voice: No History of change in genitalia: No LMP: November 2022, till then it was every 3 months Menstrual flow: 4 days Menarche: 12 to 13 years old (unsure) Number of Pregnancies: none Planning a : no Currently taking oral contraception: no Gained weight - 20 lbs in 2 years, no changes in diet or physical activity No skin darkening or thinning, any changes in skin whatsoever, or any easy bruising No lightheadedness/dizziness, no muscle cramps, or salt craving, diarrhea Reports throwing up occasionally due to aid reflux. Most recently on 12/23/23 No proximal muscle weakness No breast changes, no nipple discharge reported She reports she was told by her REMARKETING REP that her labs indicate PCOS Mother and two older sisters have irregular cycles, ?PCOS she reports, but not diagnosed as such Sister has thyroid issue Interval history: She has not new symptoms. She is following up after labs done for evaluation of elevated DHEA-s PAST MEDICAL HISTORY: PAST MEDICAL HISTORY Diagnosis Date Asthma PAST SURGICAL HISTORY: PAST SURGICAL HISTORY Procedure Laterality Date NONE FAMILY HISTORY: FAMILY HISTORY Problem Relation Age of Onset Thyroid Nodule Sister other (pcos) Sister other (pcos) Sister Hypothyroidism Maternal Aunt Thyroid Paternal Aunt Thyroid Paternal Aunt Thyroid Cancer Paternal cousin Thyroid Cancer Paternal cousin SOCIAL HISTORY: Social History Tobacco Use Smoking status: Never Smokeless tobacco: Never Vaping Use Vaping Use: Never used Substance Use Topics Alcohol use: Never Drug use: Never MEDICATIONS: Current Outpatient Medications Medication Sig dexAMETHasone (DECADRON) 1 mg tablet Take the tablet at around 11 pm and go for labs the next morning (Patient not taking: Reported on 01/09/2024) No current facility-administered medications for this visit. ALLERGIES: ALLERGIES No Known Allergies REVIEW OF SYSTEMS: As per HPI PHYSICAL EXAM: Pulse 80 Temp 36.8 C (98.3 F) (Temporal Artery) Ht 170.2 cm (5' 7") Wt 80.6 kg (177 lb 9.6 oz) LMP 09/13/2023 (Exact Date) SpO2 99% BMI 27.82 kg/m Body mass index is 27.82 kg/m . No changes from physical examination done on last visit General Appearance: Well appearing, alert, in no acute distress, well-hydrated Skin: see below Eyes: Anicteric sclera. Pupils are equally round and reactive to light. Extraocular movements are intact. . Neck: Supple, no adenopathy; thyroid symmetric, normal size, no bruits. Lungs: unlabored breathing on room air Heart: Regular rate and rhythm Abdomen: soft, non tender, Dark striae on anterior abdomen (she repots she does not remember how long they have gene but not very old) Extremities: No deformities, edema, skin discoloration, or tremors Musculoskeletal: normal strength Peripheral Pulses: Normal. Neurologic: Gait normal. Reflexes normal and symmetric. LAB: Latest Ref Rng 10/26/2023 Testosterone Free <0.13 - 1.09 ng/dL 1.35 (H) Testosterone ng/dL 37 Hemoglobin A1C 4.3 - 5.6 % 4.9 Estimated Average Glucose mg/dL 94 Prolactin 4.5 - 26.8 ng/mL 8.3 DHEA-S 65.1 - 368.0 ug/dL 604.3 (H) Hydroxyprogesterone <=206.00 ng/dL 38.51 FSH See comment mIU/mL 6.5 LH See comment mIU/mL 13.1 Estradiol 17B pg/mL 27 Latest Ref Rng 12/26/2023 Dexamethasone ng/dL 246.2 Cortisol,ON DEX,Post <1.8 ug/dL 0.5 Legend: (H) High Imaging: US female pelvis 11/06/2023 FINDINGS: Uterus size: 6.3 x 1.9 x 3.4 cm -Orientation: Anteverted -Myometrium: Normal sonographic appearance. -Endometrial echo complex: 0.4 cm -Cervix: normal Right ovary: 3.1 x 1.5 x 2.6 cm Normal sonographic appearance. Left ovary: 3.2 x 1.6 x 3.2 cm Normal sonographic appearance. Pelvis free fluid: None. Letter is very distended with 1 L of urine IMPRESSION: The uterus is small for age. The ovaries are normal or age. ASSESSMENT : 18 year old female presenting for irregular cycles with labs revealing elevated testosterone and DHEA-s PLAN: 1. Elevated DHEA-s She has irregular cycles for several years. Elevated DHEA-s and free testosterone noted on labs. DHEA-s is high, no concerns for AI noted on history and exam. Due to significantly high DHEA-s, I checked for excess cortisol with DST and the results were normal. Most likely high DHEA-s in association with irregular cycles is due to PCOS, and she has been discussed about OCPs for treatment by her OBGYN and Catalina is fine with usign OCPs, although I discussed about metformin and spironolactone as other treatment modalities FOLLOW UP: PRN Medical Decision Making: Problems: Moderate: New problem with uncertain prognosis Data: Unique test result(s) reviewed: 3+ Medical Decision Making Level: 4 - Moderate Ema Chauhan MD Endocrinology Associate Staff [facility] Endocrinology and Metabolism [place] [phone] documented in this encounter [facility] 12-25-2023 Instructions Ema Chauhan MD - 12/25/2023 8:40 AM EDT Explanation of the dexamethasone suppression test: To explain it as simply as possible, you take a pill at bedtime and then get blood work the next morning. How does it work? The pill is a steroid medicine (ie - looks like cortisol) If your system for producing cortisol is working normally, then you should not make any cortisol the next morning after taking this medication, as your body gets tricked into thinking there is already enough. If the cortisol is not suppressed, then it means that you could be over-producing cortisol but more testing must be done to know for sure. Directions for dexamethasone suppression test: 1. Take dexamethasone 1-mg tab by mouth at 11 PM the evening before your test. 2. Go to the lab the next morning and have your blood drawn at ~8 AM. *Do not eat or drink anything other than water from the time you take dexamethasone to the time you get your blood drawn. 3. If either of the following situations happen, DO NOT HAVE YOUR BLOOD DRAWN: A. You forget to take the pill at 11 PM the evening before B. You cannot get your blood drawn the next morning at ~8 AM C. If either situation happens, please call me to let me know documented in this encounter [facility] 12-25-2023 History of Present illness Narrative [facility] Initial Clinic Visit Note Consulted by: Vianey Mari MD Chief Complaint: Elevated DHEA HPI: This is a 18 year old female who presents after referral by her OB-REMARKETING REP for elevated DHEA-s checked for irregular cycles Hirsutism started: no No acne, or body hair History of deepening of voice: No History of change in genitalia: No LMP: November 2022, till then it was every 3 months Menstrual flow: 4 days Menarche: 12 to 13 years old (unsure) Number of Pregnancies: none Planning a : no Currently taking oral contraception: no Gained weight - 20 lbs in 2 years, no changes in diet or physical activity No skin darkening or thinning, any changes in skin whatsoever, or any easy bruising No lightheadedness/dizziness, no muscle cramps, or salt craving, diarrhea Reports throwing up due to aid reflux. Most recently on 12/23/23 No proximal muscle weakness No breast changes, no nipple discharge reported She reports she was told by her REMARKETING REP that her labs indicate PCOS Mother and two older sisters have irregular cycles, ?PCOS she reports, but not diagnosed as such Sister has thyroid issue PAST MEDICAL HISTORY: PAST MEDICAL HISTORY Diagnosis Date Asthma PAST SURGICAL HISTORY: PAST SURGICAL HISTORY Procedure Laterality Date NONE FAMILY HISTORY: FAMILY HISTORY Problem Relation Age of Onset Thyroid Nodule Sister other (pcos) Sister other (pcos) Sister Hypothyroidism Maternal Aunt Thyroid Paternal Aunt Thyroid Paternal Aunt Thyroid Cancer Paternal cousin Thyroid Cancer Paternal cousin SOCIAL HISTORY: Social History Tobacco Use Smoking status: Never Smokeless tobacco: Never Vaping Use Vaping Use: Never used Substance Use Topics Alcohol use: Never Drug use: Never MEDICATIONS: No current outpatient medications on file. No current facility-administered medications for this visit. ALLERGIES: ALLERGIES No Known Allergies REVIEW OF SYSTEMS: As per HPI PHYSICAL EXAM: BP 128/66 Pulse 98 Temp 36.8 C (98.3 F) (Temporal Artery) Ht 170.2 cm (5' 7") Wt 80.9 kg (178 lb 6.4 oz) LMP 09/13/2023 (Exact Date) SpO2 99% BMI 27.94 kg/m Body mass index is 27.94 kg/m . General Appearance: Well appearing, alert, in no acute distress, well-hydrated Skin: see below Eyes: Anicteric sclera. Pupils are equally round and reactive to light. Extraocular movements are intact. . Neck: Supple, no adenopathy; thyroid symmetric, normal size, no bruits. Lungs: unlabored breathing on room air Heart: Regular rate and rhythm Abdomen: soft, non tender, Dark striae on anterior abdomen (she repots she does not remember how long they have gene but not very old) Extremities: No deformities, edema, skin discoloration, or tremors Musculoskeletal: normal strength Peripheral Pulses: Normal. Neurologic: Gait normal. Reflexes normal and symmetric. LAB: Latest Ref Rng 10/26/2023 Testosterone Free <0.13 - 1.09 ng/dL 1.35 (H) Testosterone ng/dL 37 Hemoglobin A1C 4.3 - 5.6 % 4.9 Estimated Average Glucose mg/dL 94 Prolactin 4.5 - 26.8 ng/mL 8.3 DHEA-S 65.1 - 368.0 ug/dL 604.3 (H) Hydroxyprogesterone <=206.00 ng/dL 38.51 FSH See comment mIU/mL 6.5 LH See comment mIU/mL 13.1 Estradiol 17B pg/mL 27 Legend: (H) High Imaging: US female pelvis 11/06/2023 FINDINGS: Uterus size: 6.3 x 1.9 x 3.4 cm -Orientation: Anteverted -Myometrium: Normal sonographic appearance. -Endometrial echo complex: 0.4 cm -Cervix: normal Right ovary: 3.1 x 1.5 x 2.6 cm Normal sonographic appearance. Left ovary: 3.2 x 1.6 x 3.2 cm Normal sonographic appearance. Pelvis free fluid: None. Letter is very distended with 1 L of urine IMPRESSION: The uterus is small for age. The ovaries are normal or age. ASSESSMENT : 18 year old female presenting for irregular cycles with labs revealing elevated testosterone and DHEA-s PLAN: 1. Elevated DHEA-s She has irregular cycles for several years. Elevated DHEA-s and free testosterone noted on labs. DHEA-s is significantly high, and hence I would consider further testing/imaging. In addition to this, she also has dark abdominal striae and hence discussed checking for excess cortisol with 1 mg DST. If this is positive, suspicion for ACTH dependent Michelle's is high. Based on the labs, I will either consider imaging for adrenal vs pituitary or both to get to the diagnosis Instructions given for DST Pathophysiology behind doing this test explained. If cortisol is normal and no imaging abnormalities noted, I would consider this is PCOS FOLLOW UP: 2 weeks with labs Medical Decision Making: Problems: Moderate: New problem with uncertain prognosis Data: Unique source(s) for external note(s) reviewed: 1 Unique test result(s) reviewed: 3+ Unique test(s) ordered: 3+ Independent interpretation of test from other physician/QHCP Risk: Moderate: Moderate risk from testing/treatment Medical Decision Making Level: 4 - Moderate Ema Chauhan MD Endocrinology Associate Staff [facility] Endocrinology and Metabolism [place] [phone] documented in this encounter [facility] 11-23-2023 Instructions Vianey Mari MD - 11/23/2023 3:36 PM EDT [facility] [email or web address]_[email or web address]_type=default &display_rank=[email or web address] PCOS OVERVIEW Polycystic ovary syndrome (PCOS) is a condition that causes irregular menstrual periods, symptoms of excess androgens (acne, hirsutism, and scalp hair loss), and ovaries that appear "polycystic" on pelvic ultrasound. The condition occurs in approximately 5 to 10 percent of females. Many females with PCOS are overweight or obese, and they are at [id number] risk of developing type 2 diabetes, sleep apnea, fatty liver, and depression. For females with PCOS who want to become , fertility medications may be needed to induce ovulation. Although PCOS is not completely reversible, there are a number of treatments that can reduce or minimize bothersome symptoms. Most females with PCOS are able to lead a normal life without significant complications. PCOS CAUSES Reproductive system abnormalities -- The cause of PCOS is not completely understood. With regards to the reproductive system, it is believed that abnormal levels of the pituitary hormone luteinizing hormone (LH) and high levels of male hormones (androgens) interfere with normal function of the ovaries. To explain how these hormones cause symptoms, it is helpful to understand the normal menstrual cycle. Normal menstrual cycle -- The brain (including the pituitary gland), ovaries, and uterus normally follow a sequence of events once per month; this sequence helps to prepare the body for . Two hormones, follicle-stimulating hormone (FSH) and LH, are made by the pituitary gland. Two other hormones, progesterone and estrogen, are made by the ovaries. Normal menstrual periods occur about every 25 to 35 days. During the first half of the cycle, small increases in FSH stimulate the ovary to develop a follicle that contains an egg (oocyte). The follicle produces rising levels of estrogen, which cause the lining of the uterus to thicken and the pituitary to release a very large amount of LH. This midcycle "surge" of LH causes the egg to be released from the ovary (called ovulation) approximately 36 to 48 hours following the LH surge (figure 1). If the egg is fertilized by a sperm, it develops into an embryo, which travels through the fallopian tube to the uterus. After ovulation, the ovary produces both estrogen and progesterone, which prepare the uterus for possible embryo implantation and . Menstrual cycle in PCOS -- In females with PCOS, menstrual cycles are typically irregular. Pelvic ultrasound shows small follicles around the periphery of the ovary, often described as a "string of pearls." None of these small follicles are capable of growing to a size that would result in ovulation. As a result, the levels of estrogen, progesterone, LH, and FSH become imbalanced. Androgens are normally produced by the ovaries and the adrenal glands. An example of an androgen is testosterone. Androgens may become increased in females with PCOS because of the high levels of LH but also because of increased levels of insulin that are usually seen with PCOS. (See 'Insulin abnormalities' below.) Metabolic system abnormalities -- The metabolic system controls the processing of carbohydrates, fats, and proteins. Important hormones in the metabolic system include insulin, glucagon, glucagon-like peptides, and many others. Insulin abnormalities -- PCOS is associated with elevated levels of insulin in the blood. Insulin is a hormone that is produced by specialized cells within the pancreas; insulin regulates blood glucose levels. When blood glucose levels rise (after eating, for example), these cells produce insulin to help the body use glucose for energy. ?If glucose levels do not respond to normal levels of insulin, the pancreas produces more insulin. Excess production of insulin is called hyperinsulinemia. ?When increased levels of insulin are required to maintain normal glucose levels, a person is said to be insulin resistant. ?When the blood glucose levels are not completely controlled, even with increased amounts of insulin, the person is said to have glucose intolerance (sometimes referred to as "prediabetes"). ?If blood glucose levels continue to rise despite increased insulin levels, the person may have impaired glucose tolerance, often referred to as "prediabetes," which can ultimately lead to development of type 2 diabetes. These conditions are diagnosed with blood tests. (See "Patient education: Type 2 diabetes: Overview (Beyond the Basics)".) Insulin resistance and hyperinsulinemia can occur in both normal-weight and overweight females with PCOS. Among females with PCOS who are obese, there appears to be a three-fold increase in risk for prediabetes when compared with females without PCOS who are obese; up to 35 percent of those who are obese develop impaired glucose tolerance ("prediabetes") by age 40 years, while up to 10 percent of obese females develop type 2 diabetes. A family history of diabetes, overweight and obesity, as well as race and ethnicity (particularly and ), can increase the likelihood of developing diabetes among females with PCOS. PCOS SYMPTOMS The changes in hormone levels described above cause the classic symptoms of PCOS, including absent or irregular and infrequent menstrual periods, increased body hair growth or scalp hair loss, acne, and difficulty becoming . (See "Patient education: Androgenetic alopecia in men and women (Beyond the Basics)".) Signs and symptoms of PCOS usually begin around the time of puberty, although some females do not develop symptoms until late adolescence or even into early adulthood. Because hormonal changes vary from one female to another, patients with PCOS may have mild to severe acne, facial hair growth, or scalp hair loss. Menstrual irregularity -- If ovulation does not occur, the ovaries do not produce progesterone, and the lining of the uterus (called the endometrium) becomes thicker and may shed irregularly, which can result in heavy and/or prolonged bleeding. Irregular or absent menstrual periods can increase a female's risk of endometrial overgrowth (called endometrial hyperplasia) or even endometrial cancer. Females with PCOS usually have fewer than six to eight menstrual periods per year. Weight gain and obesity -- PCOS is associated with gradual weight gain and obesity in approximately one-half of females. For some females with PCOS, obesity develops at the time of puberty. Hair growth and acne -- Male-pattern hair growth (hirsutism) may be seen on the upper lip, chin, neck, sideburn area, chest, upper or lower abdomen, upper arm, and inner thigh. Acne is a skin condition that causes oily skin and blockages in hair follicles. (See "Patient education: Hirsutism (excess hair growth in females) (Beyond the Basics)" and Patient education: Acne (Beyond the Basics)".) Infertility -- Many females with PCOS do not ovulate regularly, and it may take these females longer to become . For females with PCOS who desire but have irregular periods, the fertility evaluation should start immediately as the chance of becoming is low without treatment. (See 'Treatment of infertility' below.) Heart disease -- Females who are obese and who also have insulin resistance or diabetes might have an increased risk of coronary artery disease, which increases the risk of having a heart attack. It is not known with certainty if females with PCOS are at increased risk for this condition. Both weight loss and treatment of insulin abnormalities can decrease this risk. Other treatments (eg, cholesterol-lowering medications [statins], and treatments for high blood pressure) may also be recommended. (See Patient education: High cholesterol and lipids (Beyond the Basics)" and Patient education: High blood pressure treatment in adults (Beyond the Basics)".) Sleep apnea -- Sleep apnea is a condition that causes brief spells where breathing stops (apnea) during sleep. Patients with this problem often experience fatigue and daytime sleepiness. In addition, there is evidence that people with untreated sleep apnea have an increased risk of insulin resistance, obesity, diabetes, and cardiovascular problems, such as high blood pressure, heart attack, abnormal heart rhythms, or stroke. Sleep apnea may occur in up to 50 percent of females with PCOS. The condition can be diagnosed with a sleep study, and several treatments are available. (See "Patient education: Sleep apnea in adults (Beyond the Basics)".) Other problems -- Females with PCOS are at increased risk of other problems that can impact quality of life. These include: ?Depression and anxiety - There are treatments that can help with these problems, including therapy as well as medications. (See "Patient education: Depression in adults (Beyond the Basics)".) ?Sexual dysfunction - Females with PCOS are more likely than other females to experience lower sexual satisfaction. (See "Patient education: Sexual problems in females (Beyond the Basics)".) ?Eating disorders - These include bulimia and binge eating. Females with PCOS do not appear to be at increased risk of developing anorexia. If you think you might be experiencing any of these problems, talk with your health care provider. There are often treatments that can help. Symptoms after menopause -- Less is known about PCOS symptoms after menopause. Research suggests that females with PCOS may continue to have high androgen levels after menopause (when monthly periods normally stop), but that they decline to normal after approximately age 70. However, even females who have been through menopause and whose hormone levels are returning to normal can have symptoms like excess hair growth. (See 'Hair growth and acne' above.) PCOS DIAGNOSIS There is no single test for diagnosing PCOS. You may be diagnosed with PCOS based upon your symptoms, blood tests, and a physical examination. Expert groups have determined that a female must have two out of three of the following to be diagnosed with PCOS: ?Irregular menstrual periods caused by anovulation or irregular ovulation. ?Evidence of elevated androgen levels. The evidence can be based upon signs (excess hair growth, acne, or male-pattern balding) or blood tests (high androgen levels). ?Polycystic ovaries on pelvic ultrasound. In addition, there must be no other cause of elevated androgen levels or irregular periods (eg, congenital adrenal hyperplasia [classic or nonclassic], androgen-secreting tumors, or hyperprolactinemia). Blood tests are usually recommended to determine whether another condition is the cause of your signs and/or symptoms. If you have irregular periods, blood tests for , prolactin level, thyroid-stimulating hormone (TSH), and follicle-stimulating hormone (FSH) should be done. Insulin levels are not used to diagnose PCOS, partly because insulin levels are high in people who are above normal body weight and because there is no level of insulin that is "diagnostic" for PCOS. If PCOS is confirmed, blood glucose and cholesterol testing are usually performed. An oral glucose tolerance test is the best way to diagnose prediabetes and/or diabetes. A fasting glucose level is often normal even when prediabetes or diabetes is present. Many clinicians who treat PCOS patients also recommend testing for sleep apnea with questionnaires or overnight sleep studies in a sleep laboratory. In females with moderate to severe hirsutism (excess hair growth), blood tests for testosterone and dehydroepiandrosterone sulfate (DHEAS) may be recommended. Females with PCOS and obesity are at particularly high risk for fatty liver (also called nonalcoholic steatohepatitis) and should be screened for signs of increases in liver fat and fibrosis. All females who are diagnosed with PCOS should be seen on a routine basis by a health care provider for the metabolic and reproductive issues that may occur. In addition, depression and anxiety are common in females with PCOS. PCOS TREATMENTS Oral contraceptives -- Combination oral contraceptives (COCs; with combined estrogen and progestin) are the most commonly used treatment for regulating menstrual periods in females with PCOS. COCs are also effective for treating hirsutism and acne by suppressing ovarian androgen overproduction. A skin patch and vaginal ring are also available for contraception. Some females choose intrauterine devices (IUDs) containing a type of progesterone to minimize uterine bleeding and protect against uterine cancer. However, unlike COCs, patch, and ring, the IUD is not effective for treating acne or facial hair. Females with PCOS occasionally ovulate, and COCs are useful in providing protection from . Although taking a DEBORAH in a cyclical manner, with hormone-free days each month, results in bleeding once per month, this does not mean that the PCOS is "cured"; irregular cycles generally return when the DEBORAH is stopped. (See "Patient education: Absent or irregular periods (Beyond the Basics)".) COCs decrease the body's production of androgens. Antiandrogen drugs (such as spironolactone) decrease the effect of androgens. These treatments can be used in combination to reduce and slow hair growth. COCs and antiandrogens can also reduce acne. Side effects -- Some females who take control pills (not just those with PCOS) stop having monthly bleeding or develop irregular spotting and bleeding. Irregular bleeding usually resolves after a few menstrual cycles. Many females worry that they will gain weight on the pill. In general, this is not a concern with the currently available low-dose pills. Some females develop nausea, breast tenderness, and bloating after beginning the pill, but these symptoms usually resolve after two or three months. The pill is safe and effective, although it slightly increases the risk of blood clots in the legs or lungs; this is a rare complication in young, healthy females who do not smoke, but it is more of a concern in females who are obese and in older females. (See "Patient education: Hormonal methods of control (Beyond the Basics)".) Progestin -- Another method to treat menstrual irregularity is to take a hormone called progestin (sample brand name: Provera) for 10 to 14 days every 1 to 3 months. This will induce a period in almost all females with PCOS, reducing the risk of overgrowth of endometrial cells thereby lowering the risk of endometrial hyperplasia, but it does not help with the cosmetic concerns (hirsutism and acne) and does not prevent . It does reduce the risk of uterine cancer. Hair treatments -- Excess hair growth on the face and/or other parts of the body can be removed by shaving or use of depilatories, electrolysis, or laser therapy. Many females worry that these treatments cause hair to grow faster, although this is not true. (See "Patient education: Hirsutism (excess hair growth in females) (Beyond the Basics)".) In females with PCOS, hormonal treatment of excess hair growth is typically approached in a two-step process. The first step is to prescribe an estrogen-progestin contraceptive (ie, a control pill). If, after six months of hormone treatment, sufficient improvement in excess hair growth has not been achieved, a second medication called spironolactone, an antiandrogen, is added. If hormone treatment with an estrogen-progestin results in a satisfactory reduction in excess hair growth, this therapy is continued. Scalp hair loss can be treated with medications in some situations. Other options include hair replacement and wigs. (See "Patient education: Androgenetic alopecia in men and women (Beyond the Basics)".) Weight loss -- For females with PCOS who are overweight or obese, weight loss is one of the most effective approaches for managing insulin abnormalities, irregular menstrual periods, and other symptoms of PCOS. For example, many overweight females with PCOS who lose 5 to 10 percent of their body weight notice that their periods become more regular. Weight loss can often be achieved with a program of diet and exercise. There are a number of options available to treat obesity. These options are identical to those recommended for females without PCOS and include diet and exercise, weight loss medications (although their use is limited), and weight loss surgery. (See "Patient education: Losing weight (Beyond the Basics)".) Weight loss surgery may be an option for severely obese females with PCOS. Females can lose significant amounts of weight after surgery, which can restore normal menstrual cycles, reduce high androgen levels and hirsutism, and reduce the risk of type 2 diabetes. (See "Patient education: Weight loss surgery and procedures (Beyond the Basics)".) Metformin -- Metformin (sample brand name: Glucophage) is a medication that improves the effectiveness of insulin produced by the body, reducing insulin resistance and hyperinsulinemia. It was developed as a treatment for type 2 diabetes but may be recommended for females with PCOS in selected situations. ?If a female does not have regular menstrual cycles, the first-line treatment is a hormonal method of control, such as control pills. If the female cannot take control pills, one alternative is to take metformin; a progestin is usually recommended, in addition to metformin, for six months or until menstrual cycles are regular. (See 'Progestin' above.) ?Metformin may help a bit with weight loss. Although metformin is not a weight-loss drug, some studies have shown that females with PCOS who are on a low-calorie diet lose slightly more weight when metformin is added. If metformin is used, it is essential that diet and exercise are also part of the recommended regimen because the weight that is lost in the early phase of metformin treatment may be regained over time. Metformin is not usually recommended for females with PCOS who have difficulty becoming , because it is not as effective as other treatments for ovulation induction, letrozole, and clomiphene. (See 'Treatment of infertility' below.) An expert group does not recommend metformin for females with PCOS in whom excessive hair growth (hirsutism) is of primary concern. control pills alone, or in combination with an antiandrogen medication, are a better option. (See "Patient education: Hirsutism (excess hair growth in females) (Beyond the Basics)".) Treatment of infertility -- If tests determine that lack of ovulation is the cause of infertility, several treatment options are available. These treatments work best in females who are not obese. A treatment option for females who are unable to become and who have PCOS is weight loss. Even a modest amount of weight loss may allow the female to begin ovulating normally. In addition, weight loss can improve the effectiveness of other infertility treatments. (See Patient education: Evaluation of infertility in couples (Beyond the Basics)".) Letrozole is a medication that is now used to induce ovulation in females with PCOS. Studies have shown that live rates are higher in obese females with PCOS when they are treated with letrozole rather than clomiphene, the drug used in the past. Many experts now recommend letrozole as the first choice of treatment for females with PCOS who want to conceive. If a female does not ovulate or is unable to conceive with letrozole or clomiphene, gonadotropin therapy (follicle-stimulating hormone [FSH] injections) is sometimes recommended. However, this treatment can cause multiple pregnancies, including triplets and quadruplets, particularly in patients with PCOS. In modern practice, IVF will often be suggested rather than FSH injections if clomiphene and letrozole do not result in a . The risk of multiple gestations is lower with single-embryo transfer IVF cycles when compared with FSH injections. (See "Patient education: Infertility treatment with gonadotropins (Beyond the Basics)".) WHERE TO GET MORE INFORMATION Your health care provider is the best source of information for questions and concerns related to your medical problem. This article will be updated as needed on our website ([email or web address]). Related topics for patients, as well as selected articles written for health daycare director, are also available. Some of the most relevant are listed below. Patient level information -- [facility] offers two types of patient education materials. The Basics -- The Basics patient education pieces answer the four or five yoder questions a patient might have about a given condition. These articles are best for patients who want a general overview and who prefer short, [id number] materials. documented in this encounter [facility] 11-23-2023 History of Present illness Narrative Catalina Gerber is a 18 year old female who presents for follow up. HPI: She offers no new complaints. Here to discuss results. Latest Ref Rng 10/26/2023 Testosterone Free <0.13 - 1.09 ng/dL 1.35 (H) Testosterone ng/dL 37 Hemoglobin A1C 4.3 - 5.6 % 4.9 Estimated Average Glucose mg/dL 94 Prolactin 4.5 - 26.8 ng/mL 8.3 DHEA-S 65.1 - 368.0 ug/dL 604.3 (H) Hydroxyprogesterone <=206.00 ng/dL 38.51 FSH See comment mIU/mL 6.5 LH See comment mIU/mL 13.1 Estradiol 17B pg/mL 27 Legend: (H) High Pelvic US: FINDINGS: Uterus size: 6.3 x 1.9 x 3.4 cm -Orientation: Anteverted -Myometrium: Normal sonographic appearance. -Endometrial echo complex: 0.4 cm -Cervix: normal Right ovary: 3.1 x 1.5 x 2.6 cm Normal sonographic appearance. Left ovary: 3.2 x 1.6 x 3.2 cm Normal sonographic appearance. Pelvis free fluid: None. 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 Age at Menarche: Age at First : Age at Menopause: Recreation Teacher History Comments: Sexual Activity: Never; No partner data on record Contraception: No contraception data on record PAST MEDICAL HISTORY Diagnosis Date Asthma PAST SURGICAL HISTORY Procedure Laterality Date NONE FAMILY HISTORY Problem Relation Age of Onset Thyroid Nodule Sister other (pcos) Sister other (pcos) Sister Hypothyroidism Maternal Aunt Thyroid Paternal Aunt Thyroid Paternal Aunt Thyroid Cancer Paternal cousin Thyroid Cancer Paternal cousin Social History Tobacco Use Smoking status: Never Smokeless tobacco: Never Vaping Use Vaping Use: Never used Substance Use Topics Alcohol use: Never Drug use: Never No current outpatient medications on file. No current facility-administered medications for this visit. Allergies As of Date: 11/23/2023 (No Known Allergies) Fully Assessed 11/23/2023 REVIEW OF SYSTEMS Expanded ROS: N/A Allergies and current medication updated:Yes EXAM: BP 120/70 Wt 180 lb 9.6 oz (81.9kg) LMP 09/13/2023 GENERAL: pleasant, female in no apparent distress CHEST: Normal inspiratory effort NEURO: exam grossly non-focal EXTREMITIES: normal ASSESSMENT AND PLAN: Encounter Diagnosis ICD-10-CM 1. Elevated DHEA R79.89 CONSULT TO ENDOCRINOLOGY 2. DUB (dysfunctional uterine bleeding) N93.8 3. Elevated testosterone level R79.89 Discussed likely PCOS. Pelvic US images reviewed and limited given transabdominal only, but ovaries do appear polycystic. Referral to endo given elevated DHEA. She will then follow up with me after. Discussed [facility] with control pill after endo consultation if PCOS. Vianey Mari DO Medical Decision Making: Problems: Moderate: New problem with uncertain prognosis Data: Unique test(s) ordered: 1 Medical Decision Making Level: 2 - Straightforward documented in this encounter [facility] 11-06-2023 History of Present illness Narrative Radiology Service Progress Note PATIENT NAME: Catalina Gerber DATE OF SERVICE: November 06, 2023 TIME: 3:42 PM PATIENT IDENTITY VERIFICATION COMPLETED USING TWO (2) IDENTIFIERS: Name and Date of confirmed by patient verbally. FALL SCREENING: Has the patient had 2 falls in the last year or 1 fall with injury or currently using an Ambulatory Assistive Device (Walker, Cane, Wheelchair, Crutches, etc.)? No PATIENT GENDER DATA: Female. status: : No status: NO. PATIENT RELEVANT IMPLANT DATA REVIEWED: Not Applicable PATIENT PRESENTS WITH AN IMPLANTABLE OR ATTACHED TURRET LATHE OPERATOR: No RADIOLOGY DEPARTMENT: Ultrasound PERIPHERAL IV DATA: Not applicable SIGNED BY: Patti Contreras RDMS November 06, 2023 3:42 PM documented in this encounter [facility] 10-26-2023 History of Present illness Narrative Catalina Gerber is a 18 year old female who presents for problem visit - menstrual issues. Accompanied by her mother. HPI: Menarche age 12. Periods have always been irregular. LMP 09/13/2023. Prior to that she went an entire year without having a period. Will go 2-4 months without a period. 20 lb weight gain over a few. Has never been sexually active. No hirsutism or acne. Had TSH, CBC and electrolytes completed by Dr. Nhung Barron. OB History No obstetric history on file. 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 Age at Menarche: Age at First : Age at Menopause: Recreation Teacher History Comments: Sexual Activity: Never; No partner data on record Contraception: No contraception data on record PAST MEDICAL HISTORY Diagnosis Date Asthma PAST SURGICAL HISTORY Procedure Laterality Date NONE FAMILY HISTORY Problem Relation Age of Onset Thyroid Nodule Sister other (pcos) Sister other (pcos) Sister Hypothyroidism Maternal Aunt Thyroid Paternal Aunt Thyroid Paternal Aunt Thyroid Cancer Paternal cousin Thyroid Cancer Paternal cousin Social History Tobacco Use Smoking status: Never Smokeless tobacco: Never Vaping Use Vaping Use: Never used Substance Use Topics Alcohol use: Never Drug use: Never No current outpatient medications on file. No current facility-administered medications for this visit. Allergies As of Date: 10/26/2023 (No Known Allergies) Fully Assessed 10/26/2023 REVIEW OF SYSTEMS Expanded ROS: N/A Allergies and current medication updated:Yes EXAM: BP 126/70 Wt 177 lb (80.3kg) LMP 09/13/2023 GENERAL: pleasant, female in no apparent distress HEENT: Normocephalic and atraumatic NECK: full range of motion DERMATOLOGY: Normal, without lesions, non-icteric, and non-hirsute CHEST: Normal inspiratory effort NEURO: exam grossly non-focal EXTREMITIES: normal ASSESSMENT AND PLAN: Encounter Diagnosis ICD-10-CM 1. Irregular periods N92.6 PROLACTIN BLD TESTOSTERONE, FREE AND TOTAL DHEA-S BLD HYDROXYPROGESTERONE-17 FSH BLD LUTEINIZING HORMONE ESTRADIOL-17B BLD PELVIC US WHI HGB A1C FSH BLD US FEMALE PELVIS NON-OB NON-TORSION (NO TRANSVAG) CANCELED: US FEMALE PELVIS TRANSVAG Discussed concern for PCOS. Check labs and ultrasound. Follow up once completed. Vianey Mari DO Medical Decision Making: Problems: Low: Acute, uncomplicated illness or injury Data: Unique test(s) ordered: 3+ Medical Decision Making Level: 3 - Low documented in this encounter [facility] 07-13-2022 History of Present illness Narrative This note was created using [place] ([employer])riter. Subjective Catalina Gerber is a 17 year old female. HPI by patient and mother: Catalina Gerber is a 17 year old presenting to the office with the complaint of viral symptoms. Started yesterday. Associated symptoms include congestion, cough, sore throat, and headache. Denies shortness of breath, ear pain, gi symptoms, and fever. Vaccinated for influenza: none. Covid Immunization Dates Overdue - COVID-19 VACCINE (1) Overdue - never done No completion, postpone, frequency change, or communication history exists for this topic. Personal history of Covid: 2020 Flu/RSV contacts: none. Strep contacts: family Sick contacts: family. Covid + contacts: none. Travel in the last 14 days: none. Smoking history/second hand smoke: one. OTC ibuprofen. No antibiotic use in the last 60 days. ALLERGIES No Known Allergies Active Ambulatory Problems No Active Ambulatory Problems Resolved Ambulatory Problems No Resolved Ambulatory Problems No Additional Past Medical History Review of Systems Constitutional: Negative. HENT: Positive for congestion and sore throat. Negative for ear pain. Eyes: Negative. Respiratory: Positive for cough. Negative for shortness of breath. Cardiovascular: Negative. Gastrointestinal: Negative. Endocrine: Negative. Genitourinary: Negative. Musculoskeletal: Negative. Skin: Negative. Neurological: Positive for headaches. Hematological: Negative. Objective BP 122/57 Pulse 75 Temp 36.4 C (97.6 F) (Tympanic) Resp 18 Wt 71.7 kg (158 lb) SpO2 100% Physical Exam Vitals reviewed. Constitutional: General: She is not in acute distress. Appearance: She is not ill-appearing, toxic-appearing or diaphoretic. HENT: Head: Normocephalic and atraumatic. Right Ear: Tympanic membrane, ear canal and external ear normal. Left Ear: Tympanic membrane, ear canal and external ear normal. Nose: Nose normal. Right Sinus: No maxillary sinus tenderness or frontal sinus tenderness. Left Sinus: No maxillary sinus tenderness or frontal sinus tenderness. Mouth/Throat: Mouth: Mucous membranes are moist. Pharynx: Oropharynx is clear. No oropharyngeal exudate or posterior oropharyngeal erythema. Tonsils: No tonsillar exudate. 2+ on the right. 2+ on the left. Cardiovascular: Rate and Rhythm: Normal rate and regular rhythm. Pulmonary: Effort: Pulmonary effort is normal. Breath sounds: Normal breath sounds. Lymphadenopathy: Head: Right side of head: Tonsillar adenopathy present. No submandibular adenopathy. Left side of head: Tonsillar adenopathy present. No submandibular adenopathy. Cervical: No cervical adenopathy. Psychiatric: Behavior: Behavior is cooperative. Assessment and Plan Education on viral vs bacterial infections. Most viral infections will last 10 days, sometimes 14. It is possible to have back to back viral infections. An antibiotic will not treat a virus. Negative strep culture in office. Declines viral testing, come back if you change your mind. Mother asking about send out strep. Explained that we did the Alere culture in office. She can always be retested in the future if needed. -Drink lots of fluids and get plenty of rest. Gargle with salt water 3 times/day. -Vaporizers, cool mist humidifiers, warm showers, and warm fluids help open respiratory and sinus passages. Clean humidifiers daily. -OTC tylenol/ibuprofen as directed on the bottle. -Saline nasal spray as needed. Flonase twice daily can help reduce inflammation through the sinus cavities. -OTC Mucinex DM or generic version for cough/congestion for those over the age of 12. -Cough/deep breathing education, promote clearing of the airways and good lung expansion. -Make follow up with primary care for monitoring and resolution in symptoms. -Signs that warrant an ER evaluation: Sudden change/worsening in condition, lethargy, signs of dehydration, fever greater than 102 F that is not responding to Tylenol or ibuprofen (Motrin, Advil), drooling, difficulty swallowing, difficulty breathing, shortness of breath, chest pain, evidence of airway compromise (tripod position, neck extension, retractions), seizures, changes in mental status, or other concerns. The mother will pursue further outpatient evaluation with the primary care physician or another Urgent Care/Express Care as outlined in the after visit summary. The mother is agreeable to this plan of care and follow-up instructions have been explained in detail. The mother has received these instructions in written format and have expressed an understanding of the after visit summary. Medical Decision Making: Level: 3 - Low I spent a total of 20 minutes on the date of the service which included preparing to see the patient, [id number] patient care, completing clinical documentation, obtaining and/or reviewing separately obtained history, performing a medically appropriate examination, counseling and educating the patient/family/caregiver, and ordering medications, tests, or procedures. This patient encounter involved the screening or treatment of novel coronavirus infection (COVID-19). documented in this encounter [facility] 07-13-2022 Instructions Carine Verde APRN.CNP - 07/13/2022 9:40 AM EST Education on viral vs bacterial infections. Most viral infections will last 10 days, sometimes 14. It is possible to have back to back viral infections. An antibiotic will not treat a virus. Negative strep culture in office. Declines viral testing, come back if you change your mind. -Drink lots of fluids and get plenty of rest. Gargle with salt water 3 times/day. -Vaporizers, cool mist humidifiers, warm showers, and warm fluids help open respiratory and sinus passages. Clean humidifiers daily. -OTC tylenol/ibuprofen as directed on the bottle. -Saline nasal spray as needed. Flonase twice daily can help reduce inflammation through the sinus cavities. -OTC Mucinex DM or generic version for cough/congestion for those over the age of 12. -Cough/deep breathing education, promote clearing of the airways and good lung expansion. -Make follow up with primary care for monitoring and resolution in symptoms. -Signs that warrant an ER evaluation: Sudden change/worsening in condition, lethargy, signs of dehydration, fever greater than 102 F that is not responding to Tylenol or ibuprofen (Motrin, Advil), drooling, difficulty swallowing, difficulty breathing, shortness of breath, chest pain, evidence of airway compromise (tripod position, neck extension, retractions), seizures, changes in mental status, or other concerns. documented in this encounter [facility] Evaluation note Diagnosis Viral URI with cough- Primary Acute upper respiratory infections of unspecified site Pharyngitis, unspecified etiology documented in this encounter [facility] note* Diagnosis Heart palpitations Palpitations Fatigue, unspecified type [facility] Diagnosis Irregular periods- Primary Irregular menstrual cycle documented in this encounter [facility] note* Diagnosis Irregular periods Irregular menstrual cycle documented in this encounter [facility] note* Diagnosis Elevated DHEA- Primary Other specified disorders of adrenal glands DUB (dysfunctional uterine bleeding) Other disorder of menstruation and other abnormal bleeding from female genital tract Elevated testosterone level documented in this encounter [facility] note* Diagnosis Elevated DHEA- Primary Other specified disorders of adrenal glands documented in this encounter [facility] note* Diagnosis Irregular periods/menstrual cycles- Primary Irregular menstrual cycle High serum dehydroepiandrosterone (DHEA) PCOS (polycystic ovarian syndrome) Polycystic ovaries documented in this encounter [facility] note* Diagnosis Acute non-recurrent streptococcal tonsillitis- Primary documented in this encounter [facility] note* Diagnosis Strep pharyngitis- Primary Streptococcal sore throat documented in this encounter [facility] for referral (narrative)* Diagnostic Procedure Only (Routine) - Pending Review Specialty Diagnoses / Procedures Referred By Gerson sung Referred To Contact [facility] Diagnoses Irregular periods Procedures PELVIC US WHI US PELVIC NONOBSTETRIC REAL-TIME IMAGE COMPLETE Vianey Mari MD [address] [place] [address] [address] Referral ID Status Reason Start Date Expiration Date Visits Requested Visits Authorized [id number] Pending Review Auto-Generat ed Referral 10/26/2023 10/25/2024 1 1 [facility] Summary Purpose Family History No Family History Records FoundNo Family History Records FoundNo Family History Records FoundNo Family History Records Found Advance Directives No Advanced Directives Records FoundNo Advanced Directives Records FoundNo Advanced Directives Records FoundNo Advanced Directives Records Found Reason for Referral Specialty Diagnoses / Procedures Referred By Gerson sung Referred To Contact Endocrinology Diagnoses Elevated DHEA Procedures CONSULT TO ENDOCRINOLOGY OFFICE/OUTPATIENT [facility] 60 MINUTES Vianey Mari MD [address] [place] [address] Referral ID Status Reason Start Date Expiration Date Visits Requested Visits Authorized [id number] Authorized PCP Requested Referral 11/23/2023 11/22/2024 1 1 Additional Source Comments INFORMATION SOURCE (unrecogn ized section and content) DATE CREATED AUTHOR 06/07/2020 [facility] DATE CREATED AUTHOR AUTHOR'S ORGANIZ ATION 05/01/2025 [facility] DATE CREATED AUTHOR AUTHOR'S ORGANIZ ATION 05/24/2025 [facility] DATE CREATED AUTHOR AUTHOR'S ORGANIZ ATION 06/18/2025 [facility] Source Comments (unrecognize d section and content) In the event this informatio n is protected by the Federal Confidentiality of Alcohol and Drug Abuse Patient Records regulations: The Federal rules restrict any use of the information to criminally investigate or prosecute any alcohol or drug abuse patient.[facility] the event this information is protected by the Federal Confidentiality of Alcohol and Drug Abuse Patient Records regulations: The Federal rules restrict any use of the information to criminally investigate or prosecute any alcohol or drug abuse patient.[facility] the event this information is protected by the Federal Confidentiality of Alcohol and Drug Abuse Patient Records regulations: The Federal rules restrict any use of the information to criminally investigate or prosecute any alcohol or drug abuse patient.[facility] the event this information is protected by the Federal Confidentiality of Alcohol and Drug Abuse Patient Records regulations: The Federal rules restrict any use of the information to criminally investigate or prosecute any alcohol or drug abuse patient.[facility] the event this information is protected by the Federal Confidentiality of Alcohol and Drug Abuse Patient Records regulations: The Federal rules restrict any use of the information to criminally investigate or prosecute any alcohol or drug abuse patient.[facility] the event this information is protected by the Federal Confidentiality of Alcohol and Drug Abuse Patient Records regulations: The Federal rules restrict any use of the information to criminally investigate or prosecute any alcohol or drug abuse patient.[facility] the event this information is protected by the Federal Confidentiality of Alcohol and Drug Abuse Patient Records regulations: The Federal rules restrict any use of the information to criminally investigate or prosecute any alcohol or drug abuse patient.[facility] the event this information is protected by the Federal Confidentiality of Alcohol and Drug Abuse Patient Records regulations: The Federal rules restrict any use of the information to criminally investigate or prosecute any alcohol or drug abuse patient.[facility] Reason for Visit (unrecogniz ed section and content) Reason Comments Sore Throat Sore throat, congest ion, headache started yesterday Reason Comments Radiology US Reason Comments Follow Up Reason Comments Hormone Problem Labs, elevated DHEA, missing periods Specialty Diagnoses / Procedures Referred By Gerson t Referred To Contact Endocrinology Diagnoses Elevated DHEA Procedures CONSULT TO ENDOCRINOLOGY OFFICE/OUTPATIENT [facility] 60 MINUTES Vianey Mari MD [address] [place] [address] Referral ID Status Reason Start Date Expiration Date V isits Requested Visits Authorized [id number] Closed PCP Requested Referral 11/23/2023 11/22/2024 1 1 Reason Comments elevated DHEA 2 week follow up Reason Comments Sore Throat Throat is painful, h tremayne to swallow Reason Comments Sore Throat Sore throat last cou ple days. Head ache. Hurt to swallow. Care Teams (unrecognized sec tion and content) [employer] Examiner Relationship Specialty Start Date End Date Nhung Barron MD [address] [place] [address] PCP - General Pediatrics 09/10/20 FOR RECORDS PERTAINING TO PATIENTS WHO ARE OR HAVE BEEN ENROLLED IN A CHEMICAL DEPENDENCY/SUBSTANCEABUSE PROGRAM, SOME INFORMATION MAY BE OMITTED. This clinical summary was aggregated from multiple sources. Caution should be exercised in using it in the provision of clinical care. This summary normalizes information from multiple sources, and as a consequence, information in this document may materially change the coding, format and clinical context of patient data. In addition, data may be omitted in some cases. CLINICAL DECISIONS SHOULD BE BASED ON THE PRIMARY CLINICAL RECORDS. [facility] [employer] provides no warranty or guarantee of the accuracy or completeness of information in this document.
== END | disposition home or self-care (01) ==
LOC: PSN 07:36
PROVIDERS: PCP Nurse Practitioner Family; Referring Provider Nurse Practitioner Family; Visit Provider Nurse Practitioner Family
DX: R00.2 Palpitations (principal)
CPT/HCPCS: 93225; 93226